=== PATIENT | female | born 1995 | race Hispanic/Latino ===

== ENCOUNTER 2023-07-28 22:49 | Emergency (ER) | payer OTHER ==
--- OUTSIDE RECORDS SUMMARY | 2023-07-28 22:54 | XMS REPORT | Continuity of Care Document ---
:1995 Author Organization [facility] t Address [address] [place] [address] Care Team Providers Name Role Phone Pcp, Patient Does Not Have A Primary Care Physician [id number] IRENE AMAYA Attending Clinician Unavailable IRENE AMAYA Attending Clinician Unavailable LALITHA MONTOYA Attending Clinician Unavailable Ultrasound, Jay-Mfaubree Attending Clinician Unavailable Lalitha Montoya MD Attending Clinician Lab, Jay - Willy Attending Clinician Unavailable Nancie Green MD Attending Clinician NANCIE GREEN Attending Clinician Unavailable NANCIE GREEN Attending Clinician Unavailable Sadi Campos Attending Clinician Unavailable Doctor Unassigned, [place] Attending Clinician Unavailable Primitivo Sandoval NP Attending Clinician Fellow, Woody Linder Attending Clinician Unavailable Nurse, Prema [facility] Attending Clinician Unavailable May Smith Attending Clinician Unavailable Physician, No Primary or Family Admitting Clinician Unavaila ble Payers Payer Name Policy Type Policy Number Effective Date Expiration Date Jack kline [facility] [id number] 2023 00:00:00 Problems Condition Condition Condition Status Onset Resolution Last Treating Co mments Source Name Details Category Date Date Treatment Clinician Date Disease Active Univers growth growth 9-21 [place] restrictio [place] Medical antepartum antepartum Br anch History of History of Disease Active U nivers pulmonary pulmonary 05-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 embolus 00:00: [place] during during 00 Medical Bran ch Previous Previous Disease Active Unive rs 05-23 ity of section section 00:00: [place] complicati complicati 00 Me dical ng ng Branch Supervisio Supervisio Disease Active U nivers n of high n of high 05-23 ity of risk risk 00:00: [place] 00 Medi karlene in second in second Bran ch trimester trimester Allergies, Adverse Reactions, Alerts Allergy Allergy Status Severity Reaction(s) Onset Inactive Treating Comm ents Source Name Type Date Date Clinician No Known DA Active U [facility] All[facility]ie 12-30 [facility] NO KNOWN Drug Active Univers ALLERGIE Class ity of S [facility] [place] [facility] Social History Social Habit Start Date Stop Date Quantity Comments Source ASSERTION 2023-02-20 [facility] 00:00:00 [facility] [place] [facility] Gender identity [facility]it y [facility] 2023-07-19 2023-07-19 Univers ity of function 00:00:00 00:00:00 [facility] [place] [facility] Alcohol intake 2023-07-05 2023-07-05 Ex-drinker [facility] 00:00:00 00:00:00 (finding) [facility] [place] [facility] Tobacco use and 2023 2023 Smokeless Universit y of exposure 00:00:00 00:00:00 tobacco non-user [facility] Sex Assigned At [birth year] Universit y of 00:00:00 00:00:00 [facility] [place] [facility] Smoking Status Start Date Stop Date Source Tobacco smoking [facility] Medications Ordered Filled Start Stop Current Ordering Indication Dosage Frequency Signature Comments Components Source Medication Medication Date Date Medication? Clinician (SIG) Name Name amoxicillin 2022-09 Yes [id number] 500mg Take 1 Univers -pot 0-02 tablet by ity of clavulanate [place] 500 mg 00 the Medical (AUGMENTIN) morning Branc h 500-125 mg and 1 tablet tablet at noon and 1 tablet in the evening. amoxicillin 2022-09 Yes [id number] 500mg Take 1 Univers -pot 0-02 tablet by ity of clavulanate 00:[place]: [place] mg 00 the Medical (AUGMENTIN) morning Branc h 500-125 mg and 1 tablet tablet at noon and 1 tablet in the evening. amoxicillin 2022-09 Yes [id number] 500mg Take 1 Univers -pot 0-02 tablet by ity of clavulanate 00:00: [place] 500 mg 00 the Medical (AUGMENTIN) morning Branc h 500-125 mg and 1 tablet tablet at noon and 1 tablet in the evening. amoxicillin 2022-09 Yes [id number] 500mg Take 1 Univers -pot 0-02 tablet by ity of clavulanate 00:00: [place] in [place] 500 mg 00 the Medical (AUGMENTIN) morning Branc h 500-125 mg and 1 tablet tablet at noon and 1 tablet in the evening. amoxicillin 2022-09 Yes [id number] 500mg Take 1 Univers -pot 0-02 tablet by ity of clavulanate 00:00: [place] 500 mg 00 the Medical (AUGMENTIN) morning Branc h 500-125 mg and 1 tablet tablet at noon and 1 tablet in the evening. amoxicillin 2022-09 Yes [id number] 500mg Take 1 Univers -pot 0-02 tablet by ity of clavulanate 00:00: [place] 500 mg 00 the Medical (AUGMENTIN) morning Branc h 500-125 mg and 1 tablet tablet at noon and 1 tablet in the evening. amoxicillin 2022-09 Yes [id number] 500mg Take 1 Univers -pot 0-02 tablet by ity of clavulanate 00:00: [place] 500 mg 00 the Medical (AUGMENTIN) morning Branc h 500-125 mg and 1 tablet tablet at noon and 1 tablet in the evening. insulin NPH Yes [id number] 8U inject 8 Univers (NOVOLIN N 9-08 Units ity of NPH U-100 00:00: under the [place] as INSULIN) 00 skin every Medic al 100 unit/mL morning Branc h injection and evening. insulin Yes [id number] 2U inject 2 U nivers regular 9-08 Units ity of human 00:00: under the [place] (NOVOLIN R 00 skin 2 Medical REGULAR (two) Branch U100 times INSULIN) daily 100 unit/mL before injection breakfast and dinner. Insulin 0 Yes Use as Univers Syringes, 06-07 directed ity of Disposable, 00:00: [place] 1 mL Syrg 00 Medical Branch insulin NPH Yes [id number] 8U inject 8 Univers (NOVOLIN N 9-08 Units ity of NPH U-100 00:00: under the [place] INSULIN) 00 skin every Medic al 100 unit/mL morning Branc h injection and evening. insulin 0 Yes [id number] 2U inject 2 U nivers regular 9-08 Units ity of human 00:00: under the [place] (NOVOLIN R 00 skin 2 Medical REGULAR (two) Branch U100 times INSULIN) daily 100 unit/mL before injection breakfast and dinner. Insulin Yes Use as Univers Syringes, 06-07 directed ity of Disposable, 00:00: [place] 1 mL Syrg 00 Medical Branch insulin NPH Yes [id number] 8U inject 8 Univers (NOVOLIN N 9-08 Units ity of NPH U-100 00:00: under the [place] INSULIN) 00 skin every Medic al 100 unit/mL morning Branc h injection and evening. insulin Yes [id number] 2U inject 2 U nivers regular 9-08 Units ity of human 00:00: under the [place] (NOVOLIN R 00 skin 2 Medical REGULAR (two) Branch U100 times INSULIN) daily 100 unit/mL before injection breakfast and dinner. Insulin Yes Use as Univers Syringes, 06-07 directed ity of Disposable, 00:00: [place] 1 mL Syrg 00 Medical Branch insulin NPH 0 Yes [id number] 8U inject 8 Univers (NOVOLIN N 9-08 Units ity of NPH U-100 00:00: under the [place] INSULIN) 00 skin every Medic al 100 unit/mL morning Branc h injection and evening. insulin 0 Yes [id number] 2U inject 2 U nivers regular 9-08 Units ity of human 00:00: under the [place] (NOVOLIN R 00 skin 2 Medical REGULAR (two) Branch U100 times INSULIN) daily 100 unit/mL before injection breakfast and dinner. Insulin 2022-0 Yes Use as Univers Syringes, 06-07 directed ity of Disposable, 00:00: [place] 1 mL Syrg 00 Medical Branch insulin NPH 2022-0 Yes [id number] 8U inject 8 Univers (NOVOLIN N 9-08 Units ity of NPH U-100 00:00: under the [place] INSULIN) 00 skin every Medic al 100 unit/mL morning Branc h injection and evening. insulin 2022-0 Yes [id number] 2U inject 2 U nivers regular 9-08 Units ity of human 00:00: under the [place] (NOVOLIN R 00 skin 2 Medical REGULAR (two) Branch U100 times INSULIN) daily 100 unit/mL before injection breakfast and dinner. Insulin 0 Yes Use as Univers Syringes, 06-07 directed ity of Disposable, 00:00: [place] 1 mL Syrg 00 Medical Branch insulin NPH 2022-0 Yes [id number] 8U inject 8 Univers (NOVOLIN N 9-08 Units ity of NPH U-100 00:00: under the [place] INSULIN) 00 skin every Medic al 100 unit/mL morning Branc h injection and evening. insulin 2022-0 Yes [id number] 2U inject 2 U nivers regular 9-08 Units ity of human 00:00: under the [place] (NOVOLIN R 00 skin 2 Medical REGULAR (two) Branch U100 times INSULIN) daily 100 unit/mL before injection breakfast and dinner. Insulin 2022-0 Yes Use as Univers Syringes, 06-07 directed ity of Disposable, 00:00: [place] 1 mL Syrg 00 Medical Branch insulin NPH 2022-0 Yes [id number] 8U inject 8 Univers (NOVOLIN N 9-08 Units ity of NPH U-100 00:00: under the [place] INSULIN) 00 skin every Medic al 100 unit/mL morning Branc h injection and evening. insulin 2022-0 Yes [id number] 2U inject 2 U nivers regular 9-08 Units ity of human 00:00: under the [place] (NOVOLIN R 00 skin 2 Medical REGULAR (two) Branch U100 times INSULIN) daily 100 unit/mL before injection breakfast and dinner. Insulin 2022-0 Yes Use as Univers Syringes, 06-07 directed ity of Disposable, 00:00: [place] 1 mL Syrg 00 Medical Branch insulin NPH 0 Yes [id number] 8U inject 8 Univers (NOVOLIN N 9-08 Units ity of NPH U-100 00:00: under the [place] INSULIN) 00 skin every Medic al 100 unit/mL morning Branc h injection and evening. insulin Yes [id number] 2U inject 2 U nivers regular 9-08 Units ity of human 00:00: under the [place] (NOVOLIN R 00 skin 2 Medical REGULAR (two) Branch U100 times INSULIN) daily 100 unit/mL before injection breakfast and dinner. Insulin Yes Use as Univers Syringes, 06-07 directed ity of Disposable, 00:00: [place] 1 mL Syrg 00 Medical Branch insulin NPH 0 Yes [id number] 8U inject 8 Univers (NOVOLIN N 9-08 Units ity of NPH U-100 00:00: under the [place] INSULIN) 00 skin every Medic al 100 unit/mL morning Branc h injection and evening. insulin Yes [id number] 2U inject 2 U nivers regular 9-08 Units ity of human 00:00: under the [place] (NOVOLIN R 00 skin 2 Medical REGULAR (two) Branch U100 times INSULIN) daily 100 unit/mL before injection breakfast and dinner. Insulin Yes Use as Univers Syringes, 06-07 directed ity of Disposable, 00:00: [place] 1 mL Syrg 00 Medical Branch insulin NPH 2022-0 Yes [id number] 8U inject 8 Univers (NOVOLIN N 9-08 Units ity of NPH U-100 00:00: under the [place] as INSULIN) 00 skin every Medic al 100 unit/mL morning Branc h injection and evening. insulin Yes [id number] 2U inject 2 U nivers regular 9-08 Units ity of human 00:00: under the [place] (NOVOLIN R 00 skin 2 Medical REGULAR (two) Branch U100 times INSULIN) daily 100 unit/mL before injection breakfast and dinner. Insulin Yes Use as Univers Syringes, 06-07 directed ity of Disposable, 00:00: [place] 1 mL Syrg 00 Medical Branch insulin NPH 2022- Yes [id number] 8U inject 8 Univers (NOVOLIN N 9-08 Units ity of NPH U-100 00:00: under the [place] as INSULIN) 00 skin every Medic al 100 unit/mL morning Branc h injection and evening. insulin 0 Yes [id number] 2U inject 2 U nivers regular 9-08 Units ity of human 00:00: under the [place] (NOVOLIN R 00 skin 2 Medical REGULAR (two) Branch U100 times INSULIN) daily 100 unit/mL before injection breakfast and dinner. Insulin 0 Yes Use as Univers Syringes, 06-07 directed ity of Disposable, 00:00: [place] 1 mL Syrg 00 Medical Branch insulin NPH 2022-0 Yes [id number] 8U inject 8 Univers (NOVOLIN N 9-08 Units ity of NPH U-100 00:00: under the [place] as INSULIN) 00 skin every Medic al 100 unit/mL morning Branc h injection and evening. insulin 0 Yes [id number] 2U inject 2 U nivers regular 9-08 Units ity of human 00:00: under the [place] (NOVOLIN R 00 skin 2 Medical REGULAR (two) Branch U100 times INSULIN) daily 100 unit/mL before injection breakfast and dinner. Insulin Yes Use as Univers Syringes, 06-07 directed ity of Disposable, 00:00: [place] 1 mL Syrg 00 Medical Branch insulin NPH 2022-0 Yes [id number] 8U inject 8 Univers (NOVOLIN N 9-08 Units ity of NPH U-100 00:00: under the [place] as INSULIN) 00 skin every Medic al 100 unit/mL morning Branc h injection and evening. insulin 2022-0 Yes [id number] 2U inject 2 U nivers regular 9-08 Units ity of human 00:00: under the [place] (NOVOLIN R 00 skin 2 Medical REGULAR (two) Branch U100 times INSULIN) daily 100 unit/mL before injection breakfast and dinner. Insulin Yes Use as Univers Syringes, 06-07 directed ity of Disposable, 00:00: [place] 1 mL Syrg 00 Medical Branch insulin NPH 2022-0 Yes [id number] 8U inject 8 Univers (NOVOLIN N 9-08 Units ity of NPH U-100 00:00: under the [place] as INSULIN) 00 skin every Medic al 100 unit/mL morning Branc h injection and evening. insulin 2022-0 Yes [id number] 2U inject 2 U nivers regular 9-08 Units ity of human 00:00: under the [place] (NOVOLIN R 00 skin 2 Medical REGULAR (two) Branch U100 times INSULIN) daily 100 unit/mL before injection breakfast and dinner. Insulin 0 Yes Use as Univers Syringes, 06-07 directed ity of Disposable, 00:00: [place] 1 mL Syrg 00 Medical Branch insulin NPH 0 Yes [id number] 8U inject 8 Univers (NOVOLIN N 9-08 Units ity of NPH U-100 00:00: under the [place] as INSULIN) 00 skin every Medic al 100 unit/mL morning Branc h injection and evening. insulin 0 Yes [id number] 2U inject 2 U nivers regular 9-08 Units ity of human 00:00: under the [place] (NOVOLIN R 00 skin 2 Medical REGULAR (two) Branch U100 times INSULIN) daily 100 unit/mL before injection breakfast and dinner. Insulin Yes Use as Univers Syringes, 06-07 directed ity of Disposable, 00:00: [place] 1 mL Syrg 00 Medical Branch insulin NPH 0 Yes [id number] 8U inject 8 Univers (NOVOLIN N 9-08 Units ity of NPH U-100 00:00: under the [place] as INSULIN) 00 skin every Medic al 100 unit/mL morning Branc h injection and evening. insulin 0 Yes [id number] 2U inject 2 U nivers regular 9-08 Units ity of human 00:00: under the [place] (NOVOLIN R 00 skin 2 Medical REGULAR (two) Branch U100 times INSULIN) daily 100 unit/mL before injection breakfast and dinner. Insulin 0 Yes Use as Univers Syringes, 06-07 directed ity of Disposable, 00:00: [place] 1 mL Syrg 00 Medical Branch insulin NPH 2022-0 Yes [id number] 8U inject 8 Univers (NOVOLIN N 9-08 Units ity of NPH U-100 00:00: under the [place] as INSULIN) 00 skin every Medic al 100 unit/mL morning Branc h injection and evening. insulin 2022-0 Yes [id number] 2U inject 2 U nivers regular 9-08 Units ity of human 00:00: under the [place] (NOVOLIN R 00 skin 2 Medical REGULAR (two) Branch U100 times INSULIN) daily 100 unit/mL before injection breakfast and dinner. Insulin 2022-0 Yes Use as Univers Syringes, 06-07 directed ity of Disposable, 00:00: [place] 1 mL Syrg 00 Medical Branch insulin NPH 2022-0 Yes [id number] 8U inject 8 Univers (NOVOLIN N 9-08 Units ity of NPH U-100 00:00: under the [place] as INSULIN) 00 skin every Medic al 100 unit/mL morning Branc h injection and evening. insulin 2022-0 Yes [id number] 2U inject 2 U nivers regular 9-08 Units ity of human 00:00: under the [place] (NOVOLIN R 00 skin 2 Medical REGULAR (two) Branch U100 times INSULIN) daily 100 unit/mL before injection breakfast and dinner. Insulin 0 Yes Use as Univers Syringes, 06-07 directed ity of Disposable, 00:00: [place] 1 mL Syrg 00 Medical Branch insulin NPH 2022-0 Yes [id number] 8U inject 8 Univers (NOVOLIN N 9-08 Units ity of NPH U-100 00:00: under the [place] as INSULIN) 00 skin every Medic al 100 unit/mL morning Branc h injection and evening. insulin 2022-0 Yes [id number] 2U inject 2 U nivers regular 9-08 Units ity of human 00:00: under the [place] (NOVOLIN R 00 skin 2 Medical REGULAR (two) Branch U100 times INSULIN) daily 100 unit/mL before injection breakfast and dinner. Insulin 0 Yes Use as Univers Syringes, 06-07 directed ity of Disposable, 00:00: [place] 1 mL Syrg 00 Medical Branch insulin NPH 2022-0 Yes [id number] 8U inject 8 Univers (NOVOLIN N 9-08 Units ity of NPH U-100 00:00: under the [place] as INSULIN) 00 skin every Medic al 100 unit/mL morning Branc h injection and evening. insulin 2022-0 Yes [id number] 2U inject 2 U nivers regular 9-08 Units ity of human 00:00: under the [place] (NOVOLIN R 00 skin 2 Medical REGULAR (two) Branch U100 times INSULIN) daily 100 unit/mL before injection breakfast and dinner. Insulin 0 Yes Use as Univers Syringes, 06-07 directed ity of Disposable, 00:00: [place] 1 mL Syrg 00 Medical Branch amoxicillin 2022- Yes [id number] 500mg Take 1 Univers 500 mg 06-07 capsule by ity of capsule 00:00: 04:59 mouth 4 [place] 00 :00 (four) Medical times Branch daily for 7 days. amoxicillin 2022- Yes [id number] 500mg Take 1 Univers 500 mg 06-07 capsule by ity of capsule 00:00: 04:59 mouth 4 [place] 00 :00 (four) Medical times Branch daily for 7 days. amoxicillin 2022- Yes [id number] 500mg Take 1 Univers 500 mg 06-07 capsule by ity of capsule 00:00: 04:59 mouth 4 [place] 00 :00 (four) Medical times Branch daily for 7 days. amoxicillin 2022-2022- Yes [id number] 500mg Take 1 Univers 500 mg 06-07 capsule by ity of capsule 00:00: 04:59 mouth 4 [place] 00 :00 (four) Medical times Branch daily for 7 days. amoxicillin 2022- Yes [id number] 500mg Take 1 Univers 500 mg 06-07 capsule by ity of capsule 00:00: 04:59 mouth 4 [place] 00 :00 (four) Medical times Branch daily for 7 days. amoxicillin 2022- Yes [id number] 500mg Take 1 Univers 500 mg 06-07 capsule by ity of capsule 00:00: 04:59 mouth 4 [place] 00 :00 (four) Medical times Branch daily for 7 days. amoxicillin 2022- Yes [id number] 500mg Take 1 Univers 500 mg 06-07 capsule by ity of capsule 00:00: 04:59 mouth 4 [place] 00 :00 (four) Medical times Branch daily for 7 days. enoxaparin 2022- Yes [id number] 40mg inject 0.4 Univers (LOVENOX) 9-07 mL under ity of 40 mg/0.4 00:00: [place] mL 00 in the Medical injection morning. Branch enoxaparin 2022- Yes [id number] 40mg inject 0.4 Univers (LOVENOX) 9-07 mL under ity of 40 mg/0.4 00:00: [place] mL 00 in the Medical injection morning. Branch enoxaparin 2022-0 Yes [id number] 40mg inject 0.4 Univers (LOVENOX) 9-07 mL under ity of 40 mg/0.4 00:00: [place] mL 00 in the Medical injection morning. Branch enoxaparin 2022-0 Yes [id number] 40mg inject 0.4 Univers (LOVENOX) 9-07 mL under ity of 40 mg/0.4 00:00: [place] mL 00 in the Medical injection morning. Branch enoxaparin 2022-0 Yes [id number] 40mg inject 0.4 Univers (LOVENOX) 9-07 mL under ity of 40 mg/0.4 00:00: [place] mL 00 in the Medical injection morning. Branch enoxaparin 2022-0 Yes [id number] 40mg inject 0.4 Univers (LOVENOX) 9-07 mL under ity of 40 mg/0.4 00:00: [place] mL 00 in the Medical injection morning. Branch enoxaparin 2022-0 Yes [id number] 40mg inject 0.4 Univers (LOVENOX) 9-07 mL under ity of 40 mg/0.4 00:00: [place] mL 00 in the Medical injection morning. Branch enoxaparin 2022-0 Yes [id number] 40mg inject 0.4 Univers (LOVENOX) 9-07 mL under ity of 40 mg/0.4 00:00: [place] mL 00 in the Medical injection morning. Branch enoxaparin 2022-0 Yes [id number] 40mg inject 0.4 Univers (LOVENOX) 9-07 mL under ity of 40 mg/0.4 00:00: [place] mL 00 in the Medical injection morning. Branch enoxaparin 3-0 Yes [id number] 40mg inject 0.4 Univers (LOVENOX) 9-07 mL under ity of 40 mg/0.4 00:00: [place] mL 00 in the Medical injection morning. Branch enoxaparin 3-0 Yes [id number] 40mg inject 0.4 Univers (LOVENOX) 9-07 mL under ity of 40 mg/0.4 00:00: [place] mL 00 in the Medical injection morning. Branch enoxaparin 2022-0 Yes [id number] 40mg inject 0.4 Univers (LOVENOX) 9-07 mL under ity of 40 mg/0.4 00:00: [place] mL 00 in the Medical injection morning. Branch enoxaparin 2022-0 Yes [id number] 40mg inject 0.4 Univers (LOVENOX) 9-07 mL under ity of 40 mg/0.4 00:00: [place] mL 00 in the Medical injection morning. Branch enoxaparin 2022-0 Yes [id number] 40mg inject 0.4 Univers (LOVENOX) 9-07 mL under ity of 40 mg/0.4 00:00: [place] mL 00 in the Medical injection morning. Branch enoxaparin 2022-0 Yes [id number] 40mg inject 0.4 Univers (LOVENOX) 9-07 mL under ity of 40 mg/0.4 00:00: [place] mL 00 in the Medical injection morning. Branch enoxaparin 2022-0 Yes [id number] 40mg inject 0.4 Univers (LOVENOX) 9-07 mL under ity of 40 mg/0.4 00:00: [place] mL 00 in the Medical injection morning. Branch enoxaparin 2022-0 Yes [id number] 40mg inject 0.4 Univers (LOVENOX) 9-07 mL under ity of 40 mg/0.4 00:00: [place] mL 00 in the Medical injection morning. Branch enoxaparin 2022-0 Yes [id number] 40mg inject 0.4 Univers (LOVENOX) 9-07 mL under ity of 40 mg/0.4 00:00: [place] mL 00 in the Medical injection morning. Branch enoxaparin 2022-0 Yes [id number] 40mg inject 0.4 Univers (LOVENOX) 9-07 mL under ity of 40 mg/0.4 00:00: [place] mL 00 in the Medical injection morning. Branch enoxaparin 3-0 Yes [id number] 40mg inject 0.4 Univers (LOVENOX) 9-07 mL under ity of 40 mg/0.4 00:00: [place] mL 00 in the Medical injection morning. Branch enoxaparin Yes [id number] 40mg inject 0.4 Univers (LOVENOX) 9-07 mL under ity of 40 mg/0.4 00:00: [place] mL 00 in the Medical injection morning. Branch enoxaparin Yes [id number] 40mg inject 0.4 Univers (LOVENOX) 9-07 mL under ity of 40 mg/0.4 00:00: [place] mL 00 in the Medical injection morning. Branch amoxicillin 2022- Yes 500mg Take 1 Un [place] 500 mg 05-29 tablet by ity of tablet 00:00: 04:59 mouth 4 [place] 00 :00 (four) Medical times Branch daily for 7 days. amoxicillin 2022- Yes 500mg Take 1 Un [place] 500 mg 05-29 tablet by ity of tablet 00:00: 04:59 mouth 4 [place] 00 :00 ([facility]) Medical times Branch daily for 7 days. amoxicillin 2022- Yes 500mg Take 1 Un [place] 500 mg 05-29 tablet by ity of tablet 00:00: 04:59 mouth 4 [place] 00 :00 ([facility]) Medical times Branch daily for 7 days. Alcohol Yes [id number] Check Univ ers Swabs PadM 05-27 blood ity of 00:00: glucose 4 [place] 00 times a Medical day Branch blood sugar Yes [id number] Check Univers diagnostic 05-27 blood ity of (BLOOD 00:00: sugar 4 [place] GLUCOSE 00 times a Medical TEST) strip day Branch Blood-Gluco Yes [id number] Check bood Univers se Meter 8 glucose 4 ity of Kit 00:00: times a [place] 00 day Medical Branch Lancets Yes [id number] Check Univ ers Misc 8 blood ity of 00:00: glucose 4 [place] 00 times a Medical day Branch ONETOUCH Yes Univers DELICA PLUS 8 ity of LANCET 33 00:00: [place] gauge Misc 00 Medical Branch Alcohol 2023-0 Yes [id number] Check Univ ers Swabs PadM 8-28 blood ity of 00:00: glucose 4 [place] 00 times a Medical day Branch blood sugar 2022-0 Yes [id number] Check Univers diagnostic 8-28 blood ity of (BLOOD 00:00: sugar 4 [place] GLUCOSE 00 times a Medical TEST) strip day Branch Blood-Gluco 2022-0 Yes [id number] Check bood Univers se Meter 8-28 glucose 4 ity of Kit 00:00: times a 00 day Medical Branch Lancets 2022-0 Yes [id number] Check Univ ers Misc 8-28 blood ity of 00:00: glucose 4 [place] 00 times a Medical day Branch ONETOUCH 0 Yes Univers DELICA PLUS 8-28 ity of LANCET 33 00:00: [facility] Medical Branch Alcohol 2022-0 Yes [id number] Check Univ ers Swabs PadM 8-28 blood ity of 00:00: glucose 4 00 times a Medical day Branch blood sugar 2022-0 Yes [id number] Check Univers diagnostic 8-28 blood ity of (BLOOD 00:00: sugar 4 [place] GLUCOSE 00 times a Medical TEST) strip day Branch Blood-Gluco 2022-0 Yes [id number] Check bood Univers se Meter 8-28 glucose 4 ity of Kit 00:00: times a day Medical Branch Lancets 2022-0 Yes [id number] Check Univ ers Misc 8-28 blood ity of 00:00: glucose 4 [place] 00 times a Medical day Branch ONETOUCH 2022-0 Yes Univers DELICA PLUS 8-28 ity of LANCET 33 00:00: gauge [facility] Medical Branch Alcohol 2022-0 Yes [id number] Check Univ ers Swabs PadM 8-28 blood ity of 00:00: glucose 4 [place] 00 times a Medical day Branch blood sugar 2022-0 Yes [id number] Check Univers diagnostic 8-28 blood ity of (BLOOD 00:00: sugar 4 [place] GLUCOSE 00 times a Medical TEST) strip day Branch Blood-Gluco 2022-0 Yes [id number] Check bood Univers se Meter 8-28 glucose 4 ity of Kit 00:00: times a day Medical Branch Lancets 2022-0 Yes [id number] Check Univ ers Misc 8-28 blood ity of 00:00: glucose 4 [place] 00 times a Medical day Branch ONETOUCH 2022-0 Yes Univers DELICA PLUS 8-28 ity of LANCET 33 00:00: [place] [facility] Alcohol 2022-0 Yes [id number] Check Univ ers Swabs PadM 8-28 blood ity of 00:00: glucose 4 [place] 00 times a Medical day Branch blood sugar 2022-0 Yes [id number] Check Univers diagnostic 8-28 blood ity of (BLOOD 00:00: sugar 4 [place] GLUCOSE 00 times a Medical TEST) strip day Branch Blood-Gluco 0 Yes [id number] Check bood Univers se Meter 8-28 glucose 4 ity of Kit 00:00: times a 00 day Medical Branch Lancets 2022-0 Yes [id number] Check Univ ers Misc 8-28 blood ity of 00:00: glucose 4 [place] 00 times a Medical day Branch ONETOUCH 2022-0 Yes Univers DELICA PLUS 8-28 ity of LANCET 33 00:00: [facility] Alcohol 2022-0 Yes [id number] Check Univ ers Swabs PadM 8-28 blood ity of 00:00: glucose 4 [place] 00 times a Medical day Branch blood sugar 2022-0 Yes [id number] Check Univers diagnostic 8-28 blood ity of (BLOOD 00:00: sugar 4 [place] GLUCOSE 00 times a Medical TEST) strip day Branch Blood-Gluco 2022-0 Yes [id number] Check bood Univers se Meter 8-28 glucose 4 ity of Kit 00:00: times a 00 day Medical Branch Lancets 2022-0 Yes [id number] Check Univ ers Misc 8-28 blood ity of 00:00: glucose 4 [place] 00 times a Medical day Branch ONETOUCH 2022-0 Yes Univers DELICA PLUS 8-28 ity of LANCET 33 00:00: [place] gauge [facility] Medical Branch Alcohol 2022-0 Yes [id number] Check Univ ers Swabs PadM 8-28 blood ity of 00:00: glucose 4 [place] 00 times a Medical day Branch blood sugar 2022-0 Yes [id number] Check Univers diagnostic 8-28 blood ity of (BLOOD 00:00: sugar 4 [place] GLUCOSE 00 times a Medical TEST) strip day Branch Blood-Gluco 2022-0 Yes [id number] Check bood Univers se Meter 8-28 glucose 4 ity of Kit 00:00: times a 00 day Medical Branch Lancets 2022-0 Yes [id number] Check Univ ers Misc 8-28 blood ity of 00:00: glucose 4 [place] 00 times a Medical day Branch ONETOUCH 2022-0 Yes Univers DELICA PLUS 8-28 ity of LANCET 33 00:00: [facility] Medical Branch Alcohol 2022-0 Yes [id number] Check Univ ers Swabs PadM 8-28 blood ity of 00:00: glucose 4 [place] 00 times a Medical day Branch blood sugar 2022-0 Yes [id number] Check Univers diagnostic 8-28 blood ity of (BLOOD 00:00: sugar 4 [place] GLUCOSE 00 times a Medical TEST) strip day Branch Blood-Gluco 0 Yes [id number] Check bood Univers se Meter 8-28 glucose 4 ity of Kit 00:00: times a day Medical Branch Lancets 2022-0 Yes [id number] Check Univ ers Misc 8-28 blood ity of 00:00: glucose 4 00 times a Medical day Branch ONETOUCH 2022-0 Yes Univers DELICA PLUS 8-28 ity of LANCET 33 00:00: [facility] Medical Branch Alcohol 2022-0 Yes [id number] Check Univ ers Swabs PadM 8-28 blood ity of 00:00: glucose 4 times a Medical day Branch blood sugar 2022-0 Yes [id number] Check Univers diagnostic 8-28 blood ity of (BLOOD 00:00: sugar 4 [place] GLUCOSE 00 times a Medical TEST) strip day Branch Blood-Gluco 2022-0 Yes [id number] Check bood Univers se Meter 8-28 glucose 4 ity of Kit 00:00: times a day Medical Branch Lancets 2022-0 Yes [id number] Check Univ ers Misc 8-28 blood ity of 00:00: glucose 4 00 times a Medical day Branch ONETOUCH 2022-0 Yes Univers DELICA PLUS 8-28 ity of LANCET 33 00:00: [place] gauge [facility] Medical Branch Alcohol 2022-0 Yes [id number] Check Univ ers Swabs PadM 8-28 blood ity of 00:00: glucose 4 [place] 00 times a Medical day Branch blood sugar 2023-0 Yes [id number] Check Univers diagnostic 8-28 blood ity of (BLOOD 00:00: sugar 4 [place] GLUCOSE 00 times a Medical TEST) strip day Branch Blood-Gluco 2022-0 Yes [id number] Check bood Univers se Meter 8-28 glucose 4 ity of Kit 00:00: times a day Medical Branch Lancets 2022-0 Yes [id number] Check Univ ers Misc 8-28 blood ity of 00:00: glucose 4 [place] 00 times a Medical day Branch ONETOUCH 2022-0 Yes Univers DELICA PLUS 8-28 ity of LANCET 33 00:00: [place] gauge Mis 00 Medical Branch Alcohol 2022-0 Yes [id number] Check Univ ers Swabs PadM 8-28 blood ity of 00:00: glucose 4 [place] times a Medical day Branch blood sugar 2022-0 Yes [id number] Check Univers diagnostic 8-28 blood ity of (BLOOD 00:00: sugar 4 [place] GLUCOSE 00 times a Medical TEST) strip day Branch Blood-Gluco 2022-0 Yes [id number] Check bood Univers se Meter 8-28 glucose 4 ity of Kit 00:00: times a day Medical Branch Lancets 2022-0 Yes [id number] Check Univ ers Misc 8-28 blood ity of 00:00: glucose 4 00 times a Medical day Branch ONETOUCH 2022-0 Yes Univers DELICA PLUS 8-28 ity of LANCET 33 00:00: [place] gauge [facility] 00 Medical Branch Alcohol 2022-0 Yes [id number] Check Univ ers Swabs PadM 8-28 blood ity of 00:00: glucose 4 [place] 00 times a Medical day Branch blood sugar 2022-0 Yes [id number] Check Univers diagnostic 8-28 blood ity of (BLOOD 00:00: sugar 4 [place] GLUCOSE 00 times a Medical TEST) strip day Branch Blood-Gluco 2022-0 Yes [id number] Check bood Univers se Meter 8-28 glucose 4 ity of Kit 00:00: times a 00 day Medical Branch Lancets 2022-0 Yes [id number] Check Univ ers Misc 8-28 blood ity of 00:00: glucose 4 [place] 00 times a Medical day Branch ONETOUCH 2022-0 Yes Univers DELICA PLUS 8-28 ity of LANCET 33 00:00: [place] gauge Misc Medical Branch Alcohol 2023-0 Yes [id number] Check Univ ers Swabs PadM 8-28 blood ity of 00:00: glucose 4 [place] 00 times a Medical day Branch blood sugar 2022-0 Yes [id number] Check Univers diagnostic 8-28 blood ity of (BLOOD 00:00: sugar 4 [place] GLUCOSE 00 times a Medical TEST) strip day Branch Blood-Gluco 2022-0 Yes [id number] Check bood Univers se Meter 8-28 glucose 4 ity of Kit 00:00: times a day Medical Branch Lancets 2022-0 Yes [id number] Check Univ ers Misc 8-28 blood ity of 00:00: glucose 4 times a Medical day Branch ONETOUCH 2022-0 Yes Univers DELICA PLUS 8-28 ity of LANCET 33 00:00: [facility] Medical Branch Alcohol 2022-0 Yes [id number] Check Univ ers Swabs PadM 8-28 blood ity of 00:00: glucose 4 times a Medical day Branch blood sugar 2022-0 Yes [id number] Check Univers diagnostic 8-28 blood ity of (BLOOD 00:00: sugar 4 [place] GLUCOSE 00 times a Medical TEST) strip day Branch Blood-Gluco 2022-0 Yes [id number] Check bood Univers se Meter 8-28 glucose 4 ity of Kit 00:00: times a day Medical Branch Lancets 2022-0 Yes [id number] Check Univ ers Misc 8-28 blood ity of 00:00: glucose 4 times a Medical day Branch ONETOUCH 2022-0 Yes Univers DELICA PLUS 8-28 ity of LANCET 33 00:00: [facility] Medical Branch Alcohol 202-0 Yes [id number] Check Univ ers Swabs PadM 8-28 blood ity of 00:00: glucose 4 00 times a Medical day Branch blood sugar 2022-0 Yes [id number] Check Univers diagnostic 8-28 blood ity of (BLOOD 00:00: sugar 4 [place] GLUCOSE 00 times a Medical TEST) strip day Branch Blood-Gluco 2022-0 Yes [id number] Check bood Univers se Meter 8-28 glucose 4 ity of Kit 00:00: times a day Medical Branch Lancets 2022-0 Yes [id number] Check Univ ers Misc 8-28 blood ity of 00:00: glucose 4 [place] 00 times a Medical day Branch ONETOUCH 2022-0 Yes Univers DELICA PLUS 8-28 ity of LANCET 33 00:00: [place] [facility] Alcohol 2022-0 Yes [id number] Check Univ ers Swabs PadM 8-28 blood ity of 00:00: glucose 4 [place] 00 times a Medical day Branch blood sugar 2022-0 Yes [id number] Check Univers diagnostic 8-28 blood ity of (BLOOD 00:00: sugar 4 [place] GLUCOSE 00 times a Medical TEST) strip day Branch Blood-Gluco 2022-0 Yes [id number] Check bood Univers se Meter 8-28 glucose 4 ity of Kit 00:00: times a [place] 00 day Medical Branch Lancets 2022-0 Yes [id number] Check Univ ers Misc 8-28 blood ity of 00:00: glucose 4 [place] 00 times a Medical day Branch ONETOUCH 2022-0 Yes Univers DELICA PLUS 8-28 ity of LANCET 33 00:00: [place] [facility] Alcohol 2022-0 Yes [id number] Check Univ ers Swabs PadM 8-28 blood ity of 00:00: glucose 4 [place] 00 times a Medical day Branch blood sugar 2022-0 Yes [id number] Check Univers diagnostic 8-28 blood ity of (BLOOD 00:00: sugar 4 [place] GLUCOSE 00 times a Medical TEST) strip day Branch Blood-Gluco 2022-0 Yes [id number] Check bood Univers se Meter 8-28 glucose 4 ity of Kit 00:00: times a 00 day Medical Branch Lancets 2022-0 Yes [id number] Check Univ ers Misc 8-28 blood ity of 00:00: glucose 4 [place] 00 times a Medical day Branch ONETOUCH 2022-0 Yes Univers DELICA PLUS 8-28 ity of LANCET 33 00:00: [place] [facility] Alcohol 2022-0 Yes [id number] Check Univ ers Swabs PadM 8-28 blood ity of 00:00: glucose 4 [place] 00 times a Medical day Branch blood sugar 3-0 Yes [id number] Check Univers diagnostic 8-28 blood ity of (BLOOD 00:00: sugar 4 [place] GLUCOSE 00 times a Medical TEST) strip day Branch Blood-Gluco 0 Yes [id number] Check bood Univers se Meter 8-28 glucose 4 ity of Kit 00:00: times a [place] 00 day Medical Branch Lancets 2022-0 Yes [id number] Check Univ ers Misc 8-28 blood ity of 00:00: glucose 4 [place] 00 times a Medical day Branch ONETOUCH 0 Yes Univers DELICA PLUS 8-28 ity of LANCET 33 00:00: [place] gauge [facility] Medical Branch Alcohol 2022-0 Yes [id number] Check Univ ers Swabs PadM 8-28 blood ity of 00:00: glucose 4 [place] 00 times a Medical day Branch blood sugar 2022-0 Yes [id number] Check Univers diagnostic 8-28 blood ity of (BLOOD 00:00: sugar 4 [place] GLUCOSE 00 times a Medical TEST) strip day Branch Blood-Gluco Yes [id number] Check bood Univers se Meter 8-28 glucose 4 ity of Kit 00:00: times a 00 day Medical Branch Lancets 2022-0 Yes [id number] Check Univ ers Misc 8-28 blood ity of 00:00: glucose 4 [place] 00 times a Medical day Branch ONETOUCH 0 Yes Univers DELICA PLUS 8-28 ity of LANCET 33 00:00: [place] gauge [facility] Medical Branch Alcohol 2022-0 Yes [id number] Check Univ ers Swabs PadM 8-28 blood ity of 00:00: glucose 4 [place] 00 times a Medical day Branch blood sugar 2022-0 Yes [id number] Check Univers diagnostic 8-28 blood ity of (BLOOD 00:00: sugar 4 [place] GLUCOSE 00 times a Medical TEST) strip day Branch Blood-Gluco 0 Yes [id number] Check bood Univers se Meter 8-28 glucose 4 ity of Kit 00:00: times a 00 day Medical Branch Lancets 2022-0 Yes [id number] Check Univ ers Misc 8-28 blood ity of 00:00: glucose 4 [place] 00 times a Medical day Branch ONETOUCH 2022-0 Yes Univers DELICA PLUS 8-28 ity of LANCET 33 00:00: [place] gauge Mis Medical Branch Alcohol 2022-0 Yes [id number] Check Univ ers Swabs PadM 8-28 blood ity of 00:00: glucose 4 [place] 00 times a Medical day Branch blood sugar 2022-0 Yes [id number] Check Univers diagnostic 8-28 blood ity of (BLOOD 00:00: sugar 4 [place] GLUCOSE 00 times a Medical TEST) strip day Branch Blood-Gluco 0 Yes [id number] Check bood Univers se Meter 8-28 glucose 4 ity of Kit 00:00: times a day Medical Branch Lancets 2022-0 Yes [id number] Check Univ ers Misc 8-28 blood ity of 00:00: glucose 4 00 times a Medical day Branch ONETOUCH 0 Yes Univers DELICA PLUS 8-28 ity of LANCET 33 00:00: gauge [facility] 00 Medical Branch Alcohol 2022-0 Yes [id number] Check Univ ers Swabs PadM 8-28 blood ity of 00:00: glucose 4 times a Medical day Branch blood sugar 0 Yes [id number] Check Univers diagnostic 8-28 blood ity of (BLOOD 00:00: sugar 4 [place] GLUCOSE 00 times a Medical TEST) strip day Branch Blood-Gluco 0 Yes [id number] Check bood Univers se Meter 8-28 glucose 4 ity of Kit 00:00: times a day Medical Branch Lancets 2022-0 Yes [id number] Check Univ ers Misc 8-28 blood ity of 00:00: glucose 4 times a Medical day Branch ONETOUCH 0 Yes Univers DELICA PLUS 8-28 ity of LANCET 33 00:00: gauge [facility] 00 Medical Branch Alcohol 2022-0 Yes [id number] Check Univ ers Swabs PadM 8-28 blood ity of 00:00: glucose 4 [place] 00 times a Medical day Branch blood sugar 2022-0 Yes [id number] Check Univers diagnostic 8-28 blood ity of (BLOOD 00:00: sugar 4 [place] GLUCOSE 00 times a Medical TEST) strip day Branch Blood-Gluco 2022-0 Yes [id number] Check bood Univers se Meter 8-28 glucose 4 ity of Kit 00:00: times a day Medical Branch Lancets 2022-0 Yes [id number] Check Univ ers Misc 8-28 blood ity of 00:00: glucose 4 00 times a Medical day Branch ONETOUCH 2022-0 Yes Univers DELICA PLUS 8-28 ity of LANCET 33 00:00: [place] gauge Mis 00 Medical Branch Alcohol 2023-0 Yes [id number] Check Univ ers Swabs PadM 8-28 blood ity of 00:00: glucose 4 [place] 00 times a Medical day Branch blood sugar 2022-0 Yes [id number] Check Univers diagnostic 8-28 blood ity of (BLOOD 00:00: sugar 4 [place] GLUCOSE 00 times a Medical TEST) strip day Branch Blood-Gluco 2022-0 Yes [id number] Check bood Univers se Meter 8-28 glucose 4 ity of Kit 00:00: times a 00 day Medical Branch Lancets 2022-0 Yes [id number] Check Univ ers Misc 8-28 blood ity of 00:00: glucose 4 [place] 00 times a Medical day Branch ONETOUCH 2022-0 Yes Univers DELICA PLUS 8-28 ity of LANCET 33 00:00: [place] gauge [facility] 00 Medical Branch Alcohol 2022-0 Yes [id number] Check Univ ers Swabs PadM 8-28 blood ity of 00:00: glucose 4 [place] 00 times a Medical day Branch blood sugar 2022-0 Yes [id number] Check Univers diagnostic 8-28 blood ity of (BLOOD 00:00: sugar 4 [place] GLUCOSE 00 times a Medical TEST) strip day Branch Blood-Gluco 2022-0 Yes [id number] Check bood Univers se Meter 8-28 glucose 4 ity of Kit 00:00: times a day Medical Branch Lancets 2022-0 Yes [id number] Check Univ ers Misc 8-28 blood ity of 00:00: glucose 4 [place] 00 times a Medical day Branch ONETOUCH 2022-0 Yes Univers DELICA PLUS 8-28 ity of LANCET 33 00:00: [place] gauge [facility] 00 Medical Branch Alcohol 2022-0 Yes [id number] Check Univ ers Swabs PadM 8-28 blood ity of 00:00: glucose 4 [place] 00 times a Medical day Branch blood sugar 2022-0 Yes [id number] Check Univers diagnostic 8-28 blood ity of (BLOOD 00:00: sugar 4 [place] GLUCOSE 00 times a Medical TEST) strip day Branch Blood-Gluco 2022-0 Yes [id number] Check bood Univers se Meter 8-28 glucose 4 ity of Kit 00:00: times a [place] 00 day Medical Branch Lancets 2023-0 Yes [id number] Check Univ ers Misc 8-28 blood ity of 00:00: glucose 4 [place] 00 times a Medical day Branch ONETOUCH 0 Yes Univers DELICA PLUS 8-28 ity of LANCET 33 00:00: [place] gauge [facility] 00 Medical Branch Alcohol 0 Yes [id number] Check Univ ers Swabs PadM 8-28 blood ity of 00:00: glucose 4 [place] 00 times a Medical day Branch blood sugar 0 Yes [id number] Check Univers diagnostic 8-28 blood ity of (BLOOD 00:00: sugar 4 [place] GLUCOSE 00 times a Medical TEST) strip day Branch Blood-Gluco Yes [id number] Check bood Univers se Meter 8-28 glucose 4 ity of Kit 00:00: times a 00 day Medical Branch Lancets Yes [id number] Check Univ ers Misc 8-28 blood ity of 00:00: glucose 4 [place] 00 times a Medical day Branch ONETOUCH Yes Univers DELICA PLUS 8-28 ity of LANCET 33 00:00: [place] gauge Mis 00 Medical Branch Alcohol 0 Yes [id number] Check Univ ers Swabs PadM 8-28 blood ity of 00:00: glucose 4 [place] 00 times a Medical day Branch blood sugar 0 Yes [id number] Check Univers diagnostic 8-28 blood ity of (BLOOD 00:00: sugar 4 [place] GLUCOSE 00 times a Medical TEST) strip day Branch Blood-Gluco Yes [id number] Check bood Univers se Meter 8-28 glucose 4 ity of Kit 00:00: times a 00 day Medical Branch Lancets 0 Yes [id number] Check Univ ers Misc 8-28 blood ity of 00:00: glucose 4 00 times a Medical day Branch Yes Take by Univer s vit 8-24 mouth. ity of no.124/iron 09:21: [place] /folic 19 Medical ( Branch VITAMIN ORAL) Yes Take by Univer s vit 8-24 mouth. ity of no.124/iron 09:21: [place] /folic 19 Medical ( Branch VITAMIN ORAL) Yes Take by Univer s vit 8-24 mouth. ity of no.124/iron 09:21: [place] /folic 19 Medical ( Branch VITAMIN ORAL) 0 Yes Take by Univer s vit 8-24 mouth. ity of no.124/iron 09:21: [place] /folic 19 Medical ( Branch VITAMIN ORAL) 0 Yes Take by Univer s vit 8-24 mouth. ity of no.124/iron 09:21: [place] /folic 19 Medical ( Branch VITAMIN ORAL) Yes Take by Univer s vit 8-24 mouth. ity of no.124/iron 09:21: [place] /folic 19 Medical ( Branch VITAMIN ORAL) Yes Take by Univer s vit 8-24 mouth. ity of no.124/iron 09:21: [place] /folic 19 Medical ( Branch VITAMIN ORAL) Yes Take by Univer s vit 8-24 mouth. ity of no.124/iron 09:21: [place] /folic 19 Medical ( Branch VITAMIN ORAL) Yes Take by Univer s vit 8-24 mouth. ity of no.124/iron 09:21: [place] /folic 19 Medical ( Branch VITAMIN ORAL) Yes Take by Univer s vit 8-24 mouth. ity of no.124/iron 09:21: [place] /folic 19 Medical ( Branch VITAMIN ORAL) Yes Take by Univer s vit 8-24 mouth. ity of no.124/iron 09:21: [place] /folic 19 Medical ( Branch VITAMIN ORAL) Yes Take by Univer s vit 8-24 mouth. ity of no.124/iron 09:21: [place] /folic 19 Medical ( Branch VITAMIN ORAL) Yes Take by Univer s vit 8-24 mouth. ity of no.124/iron 09:21: [place] /folic 19 Medical ( Branch VITAMIN ORAL) 0 Yes Take by Univer s vit 8-24 mouth. ity of no.124/iron 09:21: [place] /folic 19 Medical ( Branch VITAMIN ORAL) 0 Yes Take by Univer s vit 8-24 mouth. ity of no.124/iron 09:21: [place] /folic 19 Medical ( Branch VITAMIN ORAL) Yes Take by Univer s vit 8-24 mouth. ity of no.124/iron 09:21: [place] /folic 19 Medical ( Branch VITAMIN ORAL) 0 Yes Take by Univer s vit 8-24 mouth. ity of no.124/iron 09:21: [place] /folic 19 Medical ( Branch VITAMIN ORAL) Yes Take by Univer s vit 8-24 mouth. ity of no.124/iron 09:21: [place] /folic 19 Medical ( Branch VITAMIN ORAL) Yes Take by Univer s vit 8-24 mouth. ity of no.124/iron 09:21: [place] /folic 19 Medical ( Branch VITAMIN ORAL) Yes Take by Univer s vit 8-24 mouth. ity of no.124/iron 09:21: [place] /folic 19 Medical ( Branch VITAMIN ORAL) Yes Take by Univer s vit 8-24 mouth. ity of no.124/iron 09:21: [place] /folic 19 Medical ( Branch VITAMIN ORAL) Yes Take by Univer s vit 8-24 mouth. ity of no.124/iron 09:21: [place] /folic 19 Medical ( Branch VITAMIN ORAL) Yes Take by Univer s vit 8-24 mouth. ity of no.124/iron 09:21: [place] /folic 19 Medical ( Branch VITAMIN ORAL) Yes Take by Univer s vit 8-24 mouth. ity of no.124/iron 09:21: [place] /folic 19 Medical ( Branch VITAMIN ORAL) Yes Take by Univer s vit 8-24 mouth. ity of no.124/iron 09:21: [place] /folic 19 Medical ( Branch VITAMIN ORAL) Yes Take by Univer s vit 8-24 mouth. ity of no.124/iron 09:21: [place] /folic 19 Medical ( Branch VITAMIN ORAL) 0 Yes Take by Univer s vit 8-24 mouth. ity of no.124/iron 09:21: [place] /folic 19 Medical ( Branch VITAMIN ORAL) 0 Yes Take by Univer s vit 8-24 mouth. ity of no.124/iron 09:21: [place] /folic 19 Medical ( Branch VITAMIN ORAL) Yes Take by Univer s vit 8-24 mouth. ity of no.124/iron 09:21: [place] /folic 19 Medical ( Branch VITAMIN ORAL) Yes Take by Univer s vit 8-24 mouth. ity of no.124/iron 09:21: [place] /folic 19 Medical ( Branch VITAMIN ORAL) Yes Take by Univer s vit 8-24 mouth. ity of no.124/iron 09:21: [place] /folic 19 Medical ( Branch VITAMIN ORAL) Yes Take by Univer s vit 8-24 mouth. ity of no.124/iron 09:21: [place] /folic 19 Medical ( Branch VITAMIN ORAL) Yes Take by Univer s vit 8-24 mouth. ity of no.124/iron 09:21: [place] /folic 19 Medical ( Branch VITAMIN ORAL) Yes Take by Univer s vit 8-24 mouth. ity of no.124/iron 09:21: [place] /folic 19 Medical ( Branch VITAMIN ORAL) Vital Signs Vital Name Observation Time Observation Value Comments Source Systolic blood 2023-07-19 15:50:00 99 mm[Hg] Univer sity of pressure [facility] [place] [facility] Diastolic blood 2023-07-19 15:50:00 64 mm[Hg] Unive rsity of [facility] Heart rate 2023-07-19 15:50:00 96 /min [facility] Respiratory rate 2023-07-19 15:50:00 18 /[facility] 2023-07-19 15:50:00 147.3 cm [facility] Body weight 2023-07-19 15:50:00 69.854 kg [facility] BMI 2023-07-19 15:50:00 32.19 kg/m2 [facility] Systolic blood 2023-07-05 18:07:00 104 mm[Hg] Univer sity of pressure [facility] [place] [facility] Diastolic blood 2023-07-05 18:07:00 64 mm[Hg] Unive rsity of [facility] Heart rate 2023-07-05 18:07:00 91 /min [facility] [place] [facility] Body temperature 2023-07-05 18:07:00 36.89 [place] [facility] [place] [facility] Respiratory rate 2023-07-05 18:07:00 16 /min [facility] [place] [facility] Body height 2023-07-05 18:07:00 147.3 cm [facility] [place] [facility] [place] Body weight 2023-07-05 18:07:00 70.217 kg [facility] [place] [facility] BMI 2023-07-05 18:07:00 32.35 kg/m2 Universi ty of [facility] [place] [facility] Oxygen saturation in 2023-07-05 18:07:00 98 /min University Arterial blood by [facility] Pulse oximetry Branch Systolic blood 2023-06-28 18:12:00 104 mm[Hg] [facility]ity of [facility] [place] [facility] Diastolic blood 2023-06-28 18:12:00 66 mm[Hg] Unive rsity of [facility] [place] [facility] Heart rate 2023-06-28 18:12:00 92 /min [facility] [place] [facility] Body temperature 2023-06-28 18:12:00 36.72 [place] [facility] [place] [facility] Body height 2023-06-28 18:12:00 147.3 cm [facility] [place] [facility] Body weight 2023-06-28 18:12:00 69.128 kg [facility] [place] [facility] BMI 2023-06-28 18:12:00 31.85 kg/m2 [facility] [place] [facility] Systolic blood 2023-06-14 13:10:00 100 mm[Hg] Univer sity of [facility] [place] [facility] Diastolic blood 2023-06-14 13:10:00 66 mm[Hg] Unive rsity of [facility] [place] [facility] Heart rate 2023-06-14 13:10:00 68 /min [facility] [place] [facility] Body temperature 2023-06-14 13:10:00 36.5 [place] Univ ersity of [facility] Respiratory rate 2023-06-14 13:10:00 16 /min [facility] [place] [facility] [place] Body height 2023-06-14 13:10:00 147.3 cm [facility] [place] [facility] Body weight 2023-06-14 13:10:00 69.673 kg [facility] [place] [facility] BMI 2023-06-14 13:10:00 32.10 kg/m2 [facility] [place] [facility] Systolic blood 2023-06-07 18:43:00 109 mm[Hg] Univer [facility]ity of [facility] Diastolic blood 2023-06-07 18:43:00 73 mm[Hg] Unive [facility]ity of [facility] Heart rate 2023-06-07 18:43:00 79 /min [facility] [place] [facility] Body temperature 2023-06-07 18:43:00 36.83 [place] [facility] [place] [facility] Respiratory rate 2023-06-07 18:43:00 16 /min [facility] [place] [facility] Body height 2023-06-07 18:43:00 147.3 cm [facility] [place] [facility] Body weight 2023-06-07 18:43:00 68.947 kg [facility] [place] [facility] BMI 2023-06-07 18:43:00 31.77 kg/m2 [facility] [place] [facility] Respiratory rate 2023-05-30 20:39:00 16 /min [facility] [place] [facility] Body height 2023-05-30 20:39:00 147.3 cm [facility] [place] [facility] Body weight 2023-05-30 20:39:00 69.128 kg [facility] [place] [facility] BMI 2023-05-30 20:39:00 31.85 kg/m2 [facility] [place] [facility] Systolic blood 2023 14:20:00 104 mm[Hg] Univer [facility]ity [facility] Diastolic blood 2023 14:20:00 71 mm[Hg] Unive rsity of [facility] Heart rate 2023 14:20:00 92 /min [facility] [place] [facility] Respiratory rate 2023 14:20:00 18 /min [facility] Body height 2023 14:20:00 147.3 cm [facility] [place] [facility] Body weight 2023 14:20:00 68.493 kg [facility] [place] [facility] BMI 2023 14:20:00 31.56 kg/m2 [facility] Procedures Procedure Date / Time Performing Clinician Source Performed POCT URINALYSIS W/O 2023-07-19 00:00:00 [facility] 2023-07-17 18:54:00 Irene Amayae [facility] ULTRASOUND [facility] POCT URINALYSIS W/O 2023-07-05 00:00:00 Briana Whitt [facility] POCT URINALYSIS W/O 2023-06-28 00:00:00 [facility] 2023-06-19 19:22:00 Irene Amaya [facility] PATIENT QUESTIONNAIRE 2023-06-14 05:01:00 Doctor Unassigned, No [facility] POCT URINALYSIS W/O 2023-06-14 00:00:00 [facility]EN 2023-06-10 16:06:00 Irene Amaya [facility] FACTOR 2 [id number] 2023-06-10 16:06:00 [facility] F5 [facility] AND F2 [id number] 2023-06-10 16:06:00 Christina Amaya [facility] MUTATIONS [facility] URINE DRUG (IMMUNOASSAY) 2023-05-27 14:58:00 Christina Amaya [facility] COMPREHENSIVE DRUG [facility] SCREEN CBC WITH DIFF 2023-05-27 14:58:00 Irene Amaya [facility] GLYCOSYLATED HEMOGLOBIN 2023-05-27 14:58:00 Luis Amaya [facility] (A1C) [facility] RUBELLA SCREEN IGG 2023-05-27 14:58:00 Irene Amaya Uni [facility] VZV ANTIBODY SCREEN 2023-05-27 14:58:00 [facility] 2023-05-27 14:58:00 Irene Amaya Un [facility] HCV ANTIBODY 2023-05-27 14:58:00 Irene Amaya [facility] HB ABO GROUPING 2023-05-27 14:58:00 Irene Amaya [facility] URINE CULTURE 2023-05-27 14:58:00 Irene Amaya [facility] ADC OR ALAN ONLY - 2023-05-27 14:58:00 Irene Amaya [facility] HIV 1/2 AG-AB WITH 2023-05-27 14:58:00 [facility] W[facility] US 2023 15:07:28 Irene Amaya [facility] ASSIGNMENT OF BENEFITS 2023 13:50:21 Doctor Unassigned, No [facility] POCT URINALYSIS W/O 2023 00:00:00 Irnee Amaya [facility] SPECIFIC [facility] Encounters Start End Encounter Admission Attending Care Care Encounter Source Date/Time Date/Time Type Type Clinicians Facility Department ID 2023-08-01 2023-08-01 Outpatient R IRENE AMAYA [facility] [id number] [facility] 16:00:00 16:00:00 IRENE AMAYA [facility] 2023-07-19 2023-07-19 Outpatient R IRENE [facility] [id number] [facility] 10:45:00 11:14:57 MADHURI AMAYASOL [facility] 2023-07-19 2023-07-19 Routine Jeovanny-Tameka [facility] 1.2.840.114 [id number] [facility] 10:45:00 11:14:57 sIrene HANNA 350.1.13.10 ity of [place] [id number] [address] 2023-07-17 2023-07-17 Outpatient P JAN [facility] [id number] Univers 13:45:00 15:24:04 [facility] 2023-07-17 2023-07-17 Vat Skimmer Ultrasound, Caren [facility] 1.2 .840.114 [id number] Univers 13:45:00 15:24:04 Visit Lalitha Montoya HEALTH SERVICES RN 350.1.13.10 ity of REGIONAL 4.2.7.2.686 Raymond as MATERNAL [id number] [facility] ical & CHILD [address] [place] [address] 2023-07-12 2023-07-12 Outpatient R UP-MADHURI ARELLANOSOL [facility] U [facility] [id number] Univers 10:45:00 10:45:00 UP-MADHURI ARELLANOSOL [facility] 2023-07-05 2023-07-05 Outpatient R UP-MADHURI ARELLANOSOL [facility] U T[facility] [id number] Univers 13:00:00 13:11:31 UP-MADHURI ARELLANOSOL [facility] 2023-07-05 2023-07-05 Routine Up-Tameka [facility] 1.2.840.114 [id number] Univers 13:00:00 13:11:31 sIrene 350.1.13.10 ity of [place] [id number] [address] 2023-07-02 2023-07-02 Outpatient R UPMADHURI KESSLERSOL [facility] U T[facility] [id number] Univers 12:00:00 13:24:39 BEVERLYMADHURI ARELLANOSOL [facility] 2023-07-02 2023-07-02 Vat Skimmer Lab, Jay Aguilera [facility] 1.2.840.1 14 [id number] Univers 12:00:00 12:15:00 Visit UpLima Irene HEALTH 350.1.13 .10 ity of [place] 4.2.7.2.686 Raymond as JOHN?BLEA [id number] Ms mina [address] MEDICAL OFFICE BUILDING 2023-07-01 2023-07-01 [facility] 1.2.840.114 [id number] Univers 00:00:00 00:00:00 Management sIrene 350.1.13.10 it[place] [id number] [address] 2023-06-28 2023-06-28 Outpatient R UP-JOHNIE IRENE [facility] U TMB [id number] Univers 13:15:00 13:24:28 UP-JOHNIE IRENE ity [facility] 2023-06-28 2023-06-28 Routine [facility] 1.2.840.114 [id number] Univers 13:15:00 13:24:28 sLuismigue FERREIRA 350.1.13.10 ity of [place] [id number] [address] 2023-06-26 2023-06-26 Refill [facility] 1.2.840.114 [id number] Univers 00:00:00 00:00:00 sIrene 350.1.13.10 ity [place] [id number] [address] 2023-06-20 2023-06-20 Outpatient R UP-JOHNIE IRENE [facility] U [facility] [id number] Univers 11:45:00 11:45:00 UP-JOHNIE IRENE ity [facility] 2023-06-20 2023-06-20 Case [facility] 1.2.840.114 [id number] Univers 00:00:00 00:00:00 Management sIrene 350.1.13.10 ity [place] [id number] [address] 2023-06-19 2023-06-19 Vat Skimmer Ultrasound, Caren [facility] 1.2 .840.114 [id number] Univers 13:45:00 14:48:34 Visit Nancie Green HEALTH SERVICES RN 350.1.13.10 ity of [facility] 4.2.7.2.686 Raymond as MATERNAL [id number] [facility] ical & CHILD [address] [place] [address] 2023-06-19 2023-06-19 Outpatient P NANCIE GREEN [facility] [id number] Univers 13:45:00 14:48:34 NANCIE GREEN [facility] 2023-06-16 2023-06-16 Emergency EM Campos, [facility] [id number] [facility] 09:52:00 10:20:[address] Hospita 2023-06-14 2023-06-14 Outpatient R MADHURI AMAYASOL [facility] [id number] Univers 08:00:00 08:25:32 UYEN IRENE ity [facility] 2023-06-14 2023-06-14 Routine Up-Tameka [facility] 1.2.840.114 [id number] Univers 08:00:00 08:25:32 s, Irene FERREIRA 350.1.13.10 ity of [place] [id number] [address] 2023-06-14 2023-06-14 Orders Doctor TRACI 1.2.840.114 [id number] Univers 00:00:00 00:00:00 Only Unassigned, BOO 350.1.13.10 ity of [place] [facility] 4.2.7.2.686 Raymond as [id number] [address] 2023-06-10 2023-06-10 Outpatient R MADHURI AMAYASOL [facility] U [facility] [id number] Univers 11:00:00 12:39:40 IRENE AMAYA ity [facility] 2023-06-10 2023-06-10 Vat Skimmer Lab, Jay Aguilera [facility] 1.2.840.1 14 [id number] Univers 11:00:00 12:39:40 [facility] 350.1.13 .10 ity of [place] 4.2.7.2.686 Raymond as JOHN?BLEA [id number] Ms mina BAEZ [address] [place] [address] MEDICAL OFFICE BUILDING 2023-06-10 2023-06-10 Telephone [facility] 1.2.840.11 4 [id number] Univers 00:00:00 00:00:00 Dotlana HANNA 350.1.13.10 it y of [place] [id number] [address] 2023-06-07 2023-06-07 Outpatient R UEYN IRENE [facility] [id number] [facility] 13:30:00 13:59:22 MADHURI AMAYASOL ity of [facility] 2023-06-07 2023-06-07 Routine [facility] 1.2.840.114 [id number] Univers 13:30:00 13:59:22 Irene andres 350.1.13.10 ity of [place] [id number] [address] 2023-06-07 2023-06-07 Telephone [facility] 1.2.840.11 4 [id number] Univers 00:00:00 00:00:00 Irene andres 350.1.13.10 ity of [place] [id number] [address] 2023-06-06 2023-06-06 Telemedici Fellow, Woody Shaw [facility] 1 .2.840.114 [id number] Univers 14:00:00 15:00:00 ne Visit Nancie Green HEALTH SERVICES RN 350.1.13.10 ity of REGIONAL 4.2.7.2.686 [place] as MATERNAL [id number] Med ical & CHILD [address] [place] [address] 2023-06-06 2023-06-06 Outpatient R NANCIE GREEN [facility] [id number] Univers 14:00:00 14:00:00 [facility] 2023-06-06 2023-06-06 [facility] 1.2.840.114 [id number] Univers 00:00:00 00:00:00 Management sIrene 350.1.13.10 ity of [place] [id number] [address] 2023-06-06 2023-06-06 Telephone [facility] 1.2.840.11 4 [id number] Univers 00:00:00 00:00:00 s Ireneeliecer FERREIRA 350.1.13.10 ity of PEDIATRIC 4.2.7.2.686 Te [facility] CLINIC [id number] [address] 2023-06-05 2023-06-05 Telephone [facility] 1.2.840.114 [id number] Univers 00:00:00 00:00:00 s, Irene MEGAN 350.1.13.10 ity of [place] [id number] Ms dical [address] 2023-05-30 2023-05-30 Nurse Nurse, Lkj [facility] 1.2.840.114 [id number] Univers 14:30:00 15:37:54 Visit Irene Amaya 350.1.13 .10 ity of [place] [id number] [address] 2023-05-30 2023-05-30 Outpatient R IRENE AMAYA [facility] [id number] Univers 14:30:00 15:37:54 [facility] 2023-05-27 2023-05-27 Vat Skimmer Lab, Jay - Willy [facility] 1.2.840.1 14 [id number] Univers 09:45:00 10:20:42 [facility] 350.1.13 .10 ity of [place] 4.2.7.2.686 Raymond as JOHN?BLEA [id number] Ms mina [address] MEDICAL OFFICE BUILDING 2023-05-27 2023-05-27 Outpatient R UP-JOHNIE IRENE [facility] [id number] Univers 09:45:00 09:45:00 UP-ARELLANO, IRENE ity of [facility] 2023-05-27 2023-05-27 Telephone [facility] 1.2.840.11 4 [id number] Univers 00:00:00 00:00:00 sMadhuriIrene HANNA 350.1.13.10 ity of PEDIATRIC 4.2.7.2.686 Te s [facility] [id number] [address] 2023 2023 Outpatient R UP-JOHNIE IRENE [facility] [id number] Univers 09:00:00 09:58:37 UP-ARELLANO, IRENE ity of [facility] 2023 2023 Initial [facility] 1.2.840.114 [id number] Univers 09:00:00 09:58:37 sLuisl HANNA 350.1.13.10 ity of Visit [place] [id number] [address] 2023 2023 Orders Doctor TRACI 1.2.840.114 [id number] Univers 00:00:00 00:00:00 Only Unassigned, BOO 350.1.13.10 ity of [place] [facility] 4.2.7.2.686 Raymond as [id number] [address] 2023 2023 Telephone [facility] 1.2.840.11 4 [id number] Univers 00:00:00 00:00:00 s Irene HANNA 350.1.13.10 ity of WOMEN'S 4.2.7.2.686 [facility] [id number] [address] 2023 2023 Telephone Stephanie [facility] 1.2.840.11 4 [id number] Univers 00:00:00 00:00:00 Irene andres 350.1.13.10 ity of WOMEN'S 4.2.7.2.686 [facility] [id number] [place] [address] [place] 2022-03-23 2022-03-24 Emergency EM Peace, [facility] ER [id number] [facility] Balaji 22:53:00 02:36:00 May [facility] 2022-03-23 2022-03-23 Emergency EM Peace, HCARG HC[facility] [id number] [facility] Ernest 22:53:00 22:53:00 May [id number] [facility] Results Test Description Test Time Test Comments Results Result Comments Source POCT URINALYSIS W/O SPECIFIC GRAVITY 2023-07-19 15:52:00 Test Item Value Reference Range Interpretation Comme nts POCT PH U (test code = 3254) N/A 5-8 POCT U LEUK EST (test code = 3263) N/A Negative - Negative POCT U NIT (test code = 3262) N/A Negative - Negative POCT U PROT (test code = 3259) Negative Negative - Negative POCT U GLU (test code = 3256) Negative Negative - Negative POCT U KETONE (test code = 3258) N/A Negative - Negative POCT U BLD (test code = 3257) N/A Negative - Negative [facility] SPEC[facility] [id number] 15:52:00 Test Item Value Reference Range Interpretation Comments POCT PH U (test code = 3254) N/A 5-8 POCT U LEUK EST (test code = N/A Negative - Negative 3263) POCT U NIT (test code = 3262) N/A Negative - Negative POCT U PROT (test code = 3259) Negative Negative - Negative POCT U GLU (test code = 3256) Negative Negative - Negative POCT U KETONE (test code = 3258) N/A Negative - Negative POCT U BLD (test code = 3257) N/A Negative - Negative [facility]/O SPECIFIC [id number] 18:01:00 Test Item Value Reference Range Interpretation Comments POCT PH U (test code = 3254) n/a 5-8 POCT U LEUK EST (test code = n/a Negative - Negative 3263) POCT U NIT (test code = 3262) n/a Negative - Negative POCT U PROT (test code = 3259) negative Negative - Negative POCT U GLU (test code = 3256) 100 Negative - Negative POCT U KETONE (test code = 3258) n/a Negative - Negative POCT U BLD (test code = 3257) n/a Negative - Negative [facility] W/O SPECIFIC [id number] 18:10:00 Test Item Value Reference Range Interpretation Comments POCT PH U (test code = 3254) n/a 5-8 POCT U LEUK EST (test code = n/a Negative - Negative 3263) POCT U NIT (test code = 3262) n/a Negative - Negative POCT U PROT (test code = 3259) Negative Negative - Negative POCT U GLU (test code = 3256) Normal Negative - Negative POCT U KETONE (test code = 3258) n/a Negative - Negative POCT U BLD (test code = 3257) n/a Negative - Negative [facility] BranchURINALYSIS [id number] 10:10:00 Test Item Value Reference Range Interpretation Comments POC,URINE COLOR (test Yellow Yellow Testin g performed code = EDCOLU) at:[facility] [address] [place] [address] [place] [address] ----- ----- -- POC,URINE CLARITY (test Cloudy Clear A code = EDCLARITY) POC,URINE GLUCOSE (test 100 Negative A code = EDGLUU) POC,URINE BILIRUBIN Negative Negative (test code = EDBILIU) POC,URINE KETONES (test Trace Negative A code = EDKETU) POC,URINE SPECIFIC >= 1.030 1.001-1.035 N GRAVITY (test code = EDSGU) POC,URINE BLOOD (test Large Negative A code = EDBLDU) POC,URINE pH (test code 6.0 5.0-8.0 N = EDPH) POC,URINE PROTEIN (test >=300 Negative A code = EDPROTU) POC,URINE UROBILINOGEN 1.0 E.U/dL 0.2-1.0 (test code = EDURO) POC,URINE NITRITE (test Negative Negative code = EDNIT) POC,URINE LEUKOCYTE Small Negative A ESTERASE (test code = EDLEUK) POCT URINALYSIS W/O SPECIFIC [id number] 13:10:00 Test Item Value Reference Range Interpretation Comments POCT PH U (test code = 3254) n/a 5-8 POCT U LEUK EST (test code = n/a Negative - Negative 3263) POCT U NIT (test code = 3262) n/a Negative - Negative POCT U PROT (test code = 3259) negative Negative - Negative POCT U GLU (test code = 3256) negative Negative - Negative POCT U KETONE (test code = 3258) n/a Negative - Negative POCT U BLD (test code = 3257) n/a Negative - Negative [facility] [id number] 14:33:02 Test Item Value Reference Range Interpretation Comments Factor 2 [id number] Normal Normal Mutation (test code = 8081514746) LIDYA (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 Incidence: Approximately 2-5 percent of Caucasians and 0.3 percent of Americans are heterozygous; about 1 in 10,000 individuals are homozygous with two copies of the mutation.Inheritance: Autosomal dominant. Penetrance: The risk of thrombosis is increased 2-4 fold for heterozygotes and further increased for homozygotes. Mutation Tested: F2 c.55622R>A (O55264G). Clinical Sensitivity for Venous Thrombosis: Approximately 10%. Methodology: Polymerase chain reaction and fluorescence monitoring Limitations: The performance of this assay has not been evaluated with samples from pediatric patients. Counseling and informed consent are recommended for genetic testing. 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 Incidence: Between 3 and 8 percent of people with ancestry are heterozygous and about 1 in 5000 individuals are homozygous with two copies of the mutation. The mutation is less common in other population.Inheritance: Autosomal dominant. Penetrance: Lifetime risk of thrombosis is 10 percent for heterozygotes and 80 percent for homozygotes. Mutation Tested: Missense F5 gene mutation R506Q (1691G>A). Note: Standardized nomenclature for the Factor 5 Leiden mutation is c.1601G>A (p.Rhz675Hzo). Methodology: Polymerase chain reaction and fluorescence monitoring. Limitations: Rare Factor V mutations (Q5388H, J9511B, and W8969X) and any additional SNPs in the probe binding region may interfere with the target detection and yield an INVALID result. The performance of this assay has not been evaluated with samples from pediatric patients. Counseling and informed consent are recommended for genetic testing. References: OMIM: 503401 https://ghr.nlm.nih.gov/co ndition/zshzhb-h-orqgnq-th rombophilia [facility] W/O SPECIFIC [id number] 14:25:00 Test Item Value Reference Range Interpretation Comments POCT PH U (test code = 3254) N/A 5-8 POCT U LEUK EST (test code = N/A Negative - Negative 3263) POCT U NIT (test code = 3262) N/A Negative - Negative POCT U PROT (test code = 3259) Negative Negative - Negative POCT U GLU (test code = 3256) 3+ Negative - Negative POCT U KETONE (test code = 3258) N/A Negative - Negative POCT U BLD (test code = 3257) N/A Negative - Negative [facility]- [facility] PREG 1ST [id number] 09:50:00 [facility] : 1995 Sex: F FAX: May Smith Hollins: ALDAIR St: DEP Name: FCO BROCK [facility] : 1995 Age/S: 26/F[address] [facility] Unit #: [id number] Loc: [place] [address] Phys: May Smith MD Acct: [id number] Dis Date: Status: DEP ER PHONE #: [phone] Exam Date: 03/23/202244 FAX #: [phone] Reason: pelvic pain EXAMS: CPT CODE: [id number] US PREG 1ST TRIMTR 48596 - US PREG UT TRANSVAGINAL , 03/24/2022 12:45 AM. INDICATION: /VAGINAL BLEED . TECHNIQUE: The gravid uterus was evaluated utilizing dynamic scanning. A transabdominal and transvaginal study was performed. FINDINGS: There is a single intrauterine gestation. Measurements of the crown-rump length of 0.43 cm indicate a age of 6 weeks 1 day. The JOSE is 11/17/2022. By LMP, fetus is 11 weeks 1 day. No dopplerable heart tones. A yolk sac was demonstrated. No subchorionic hemorrhage or other abnormality was seen. The uterus measures 10.5 x 5.8 x 7.2 cm. Both ovaries were identified and normal in size and echogenicity. The right ovary measures 3.3 x 2.1 x 2.2 cm. The left ovary measures 3.2 x 1.5 x 3.1 cm. No suspicious adnexal masses or fluid collections were seen. CONCLUSION: 1. Single intrauterine gestation at approximately 6 weeks 1 day, discordant with LMP dates. No dopplerable heart tonesmay be secondary to very early gestation however short-term follow-up and correlation with serial beta hCG suggested. 2. No suspicious adnexal masses. at 0950 Reported and signed by: ANNIE MUNSON M.D. CC: Technologist: Martina Leach RDMS Trnscrd Date/Time/By: 04/24/2022 (0950) : By: [email or web address] Orig Print D/T: S: 04/24/2022 (0953) PAGE 1 Signed Report- US PREG UT [id number] 01:08[facility] 1995 Sex: F FAX: May Smith Hollins: ALDA[address] St: REG Name: FCO BROCK [facility] : 1995 Age/S: 26/F [address] [facility] Unit #: [id number] Loc: [place] [address] Phys: May Smith MD Acct: [id number] Dis Date: Status: REG ER PHONE #: [phone] Exam Date: 03/24/202244 FAX #: [phone] Reason: VAGINAL BLEED EXAMS: CPT CODE: [id number] US PREG UT TRANSVAGINAL 52216 - US PREG UT TRANSVAGINAL , 03/24/2022 12:45 AM. INDICATION: /VAGINAL BLEED . TECHNIQUE: The gravid uterus was evaluated utilizing dynamic scanning. A transabdominal and transvaginal study was performed. FINDINGS: There is a single intrauterine gestation. Measurements of the crown- rump length of 0.43 cm indicate a age of 6 weeks 1 day. The JOSE is 11/17/2022. By LMP, fetus is 11 weeks 1 day. Nodopplerable heart tones. A yolk sac was demonstrated. No subchorionic hemorrhage or other abnormality was seen. The uterus measures 10.5 x 5.8 x 7.2 cm. Both ovaries were identified and normal insize and echogenicity. The right ovary measures 3.3 x 2.1 x 2.2 cm. The left ovary measures 3.2 x 1.5 x 3.1 cm. No suspicious adnexal masses or fluid collections were seen. CONCLUSION: 1. Single intrauterine gestation at approximately 6 weeks 1 day, discordant with LMP dates. No dopplerable heart tones may be secondary to very early gestation however short-term follow- up and correlation with serial beta hCG suggested. 2. No suspicious adnexal masses. at 0108 Reported and signed by: ANNIE MUNSON M.D. CC: Technologist: [id number] PROBE USED Trnscrd Date/Time/By: 03/24/2022 (0108) : By: [email or web address] Orig Print D/T: S: 03/24/2022 (0111) PAGE 1 Signed ReportBASIC METABOLIC [id number] 00:01:00 Test Item Value Reference Range Interpretation Comments SODIUM (test code = 133 mmol/L 136-145 L NA) POTASSIUM (test code 4.0 mmol/L 3.5-5.1 N = K) CHLORIDE (test code = 103 mmol/L 98-107 N CL) CARBON DIOXIDE (test 27 mmol/L 21-32 N code = CO2) GLUCOSE (test code = 431 mg/dL 70-100 H GLU) BLOOD UREA NITROGEN 9 mg/dL 7-18 N (test code = BUN) GLOMERULAR FILTRATION > 60.00 See_Comment Report ing units: RATE (test code = mL/min/1.7 3m\S\2 GFR) (Modified MDRD formula)REFEREN CE RANGE: > or = 6 0 ml/min/1.73M2IF PATIENT IS -KLEBER N, MULTIPLY REPORT ED RESULT BY10.20. [Automated mess age] The system [employer] generated this result transmitted ref erence range: >=60. Th e reference range was not used to int erpret this result as normal/abnormal . CREATININE (test code 0.77 mg/dL 0.51-0.95 N = CREAT) CALCIUM (test code = 9.5 mg/dL 8.5-10.1 N CA) HCG [id number] 00:01:00 Test Item Value Reference Range Interpretation Comments HCG SERUM (test 5119 mIU/ml 0-6 H Values for B -hCG generally code = HCG) peak during the first trimesterand de middleton slowly throughout the remainder of thepregnancy. A sharply reduced or fall ing serum B-hCG levelmay indicate an abnormal pregna ncy, and additonal clinicalevaluat ion and follow-up may b e appropriate. HC G rangesduring no rmal , as r eported in the literature, aresummarized below.......... ............ ............... ............ ............Pilo roximate hCG Approximate GestationalRang e mIU/mL[IU/L] Age ---- ------5 - 50 0.2 - 1 Week50 - 500 1 - 2 Vtsua597 - 5000 2 - 3 Mrjgq766 - 10,0 00 3 - 4 Qxrkw7468 - 50, 000 4 - 5 Weeks10,000 - 1 00,000 5 - 6 Weeks15,000 - 2 00,000 6 - 8 Weeks10,000 - 1 00,000 2 - 3 Months CBC W/AUTO [id number] 23:25:00 Test Item Value Reference Range Interpretation Comments WHITE BLOOD CELL (test code = 8.8 X10(3) 4.5-11.0 N WBC) RED BLOOD CELL (test code = 4.84 X10(6) 4.2-5.4 N RBC) HEMOGLOBIN (test code = HGB) 13.0 g/dL 12.5-16.0 N HEMATOCRIT (test code = HCT) 39.9 % 37.0-47.0 N MEAN CELL VOLUME (test code = 82.4 fl 78-100 N MCV) MEAN CELL HGB (test code = MCH) 26.9 pg 26.0-34.0 N MEAN CELL HGB CONCETRATION 32.6 g/dl 30.0-37.0 N (test code = MCHC) RED CELL DISTRIBUTION WIDTH 13.7 % 11.5-14.5 N (test code = RDW) PLATELET COUNT (test code = 229 X10(3) 150-350 N PLT) MEAN PLATELET VOLUME (test code 12.3 fl 8.7-11.4 H = MPV) NEUTROPHIL % (test code = NT%) 59.9 % 36.0-66.0 N IMMATURE GRANULOCYTE % (test 0.3 % 0.0-2.0 N code = IG%) LYMPHOCYTE % (test code = LY%) 33.4 % 16.0-50.0 N MONOCYTE % (test code = MO%) 4.9 % 0.0-13.0 N EOSINOPHIL % (test code = EO%) 1.2 % 0.0-4.5 N BASOPHIL % (test code = BA%) 0.3 % 0.0-1.5 N NUCLEATED RBC % (test code = 0.0 % 0-0.2 N NRBC%) NEUTROPHIL # (test code = NT#) 5.29 X10(3) 1.70-7.70 N IMMATURE GRANULOCYTE # (test 0.03 X10(3)uL 0.00-0.03 N code = IG#) LYMPHOCYTE # (test code = LY#) 2.95 X10(3) 0.70-4.00 N MONOCYTE # (test code = MO#) 0.43 X10(3) 0.00-0.89 N EOSINOPHIL # (test code = EO#) 0.11 X10(3) 0.00-0.60 N BASOPHIL # (test code = BA#) 0.03 X10(3) 0.00-0.20 N NUCLEATED RBC # (test code = 0.00 K/mm3 0.0-0.1 N NRBC#)
[2023-07-29] MEDS ORDERED: METOCLOPRAMIDE 10 MG/2mL INJ ONE (00:26)
[2023-07-29] MEDS ORDERED: NA CHLORIDE 0.9% 1,000 ML ONE (00:26)
[2023-07-29] MEDS ORDERED: ACETAMINOPHEN 500 MG TAB ONE (00:26)
[2023-07-29 00:36] LABS: Absolute Lymphocytes (CBC) 2.3 K/uL (0.7-4.9); Hematocrit 34.2 % (36.0-45.0); Lymphocytes % 18.9 % (15.3-44.8); MCV 84.1 fL (80-100); MPV 10.6 fL (7.6-11.3); Platelets 196 thou/uL (152-406); RBC Red Blood Cell Count 4.07 M/uL (3.86-4.86)
[2023-07-29 00:45] LABS: Specific Gravity > 1.030 (1.005-1.030); Urine Bacteria >50 /HPF (<20); Urine Bilirubin NEGATIVE (Negative); Urine Blood Negative (Negative); Urine Clarity Extremely Turbid (Clear); Urine Color Yellow (Yellow); Urine Glucose 4+ (Over) (Negative); Urine Protein 1+ (Negative); Urine RBC <5 /HPF (None Seen); Urine Urobilinogen Normal (Normal); Urine pH 6.5 (5.0-7.0)
[2023-07-29 00:47] LABS: Albumin 2.7 g/dL (3.4-5.0); Bilirubin Total 0.2 mg/dL (0.2-1.0); Potassium 3.4 mEq/L (3.5-5.1); Protein, Total 7.2 g/dL (6.4-8.2)
[2023-07-29] MEDS ORDERED: NA CHLORIDE 0.9% 50 ML ONE (02:01)
[2023-07-29] MEDS ORDERED: CEFTRIAXONE 1000 MG/VIAL ONE (02:01)
--- NOTE | 2023-07-29 02:27 | ER ---
Nurse's Notes [facility] Name: Nnamdi Rascon Age: 28 yrs Sex: Female : 1995 Arrival Date: 07/28/2023 Time: 22:49 Bed 4 Private MD: Diagnosis: UTI/ Urinary tract infection, site not specified;Pyelonephritis acute;UTI in Presentation: 07/28 23:27 Chief complaint: Patient states: right abdominal pain into right hip since this lg3 morning. denies N/V. Coronavirus screen: Client denies travel out of the [place] in the last 14 days. At this time, the client does not indicate any symptoms associated with coronavirus-19. Ebola Screen: No symptoms or risks identified at this time. Initial Sepsis Screen: Does the patient meet any 2 criteria? No. Patient's initial sepsis screen is negative. Does the patient have a suspected source of infection? No. Patient's initial sepsis screen is negative. Risk Assessment: Do you want to hurt yourself or someone else? Patient reports no desire to harm self or others. Onset of symptoms was July 28, 2023. 23:27 Method Of Arrival: Ambulatory lg3 23:27 Acuity: GÉNESIS 3 lg3 Triage Assessment: 23:29 General: Appears in no apparent distress. uncomfortable, Behavior is calm, cooperative. lg3 Pain: Complains of pain in right upper quadrant and right lower quadrant Pain radiates to right hip. EENT: No deficits noted. No signs and/or symptoms were reported regarding the EENT system. Neuro: No deficits noted. Nagel Agitation-Sedation Scale (RASS): 0 - Alert and Calm Level of Consciousness is awake, alert, obeys commands, Oriented to person, place, time, situation. Cardiovascular: No deficits noted. Denies chest pain, shortness of breath, Capillary refill < 3 seconds Clubbing of nail beds is absent JVD is absent Patient's skin is warm and dry. Respiratory: No deficits noted. Airway is patent Respiratory effort is even, unlabored, Respiratory pattern is regular, symmetrical. GI: Abdomen is round non-distended, Reports lower abdominal pain, upper abdominal pain, cramping. : No deficits noted. No signs and/or symptoms were reported regarding the genitourinary system. Derm: No deficits noted. No signs and/or symptoms reported regarding the dermatologic system. Skin is intact, is healthy with good turgor, Skin is dry, Skin is normal, Skin temperature is warm. Musculoskeletal: No deficits noted. No signs and/or symptoms reported regarding the musculoskeletal system. Circulation, motion, and sensation intact. Range of motion: intact in all extremities. 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 - Social history:: Smoking status: Patient denies any tobacco usage or history of. Patient/guardian denies using alcohol, street drugs. - Family history:: not pertinent. Screenin:55 [facility] ED Fall Risk Assessment (Adult) History of falling in the last 3 months, km8 including since admission No falls in past 3 months (0 pts) Confusion or Disorientation No (0 pts) Intoxicated or Sedated No (0 pts) Impaired Gait No (0 pts) Mobility Assist Device Used No (0 pt) Altered Elimination No (0 pt) Score/Fall Risk Level 0 - 2 = Low Risk Oriented to surroundings, Maintained a safe environment, Educated pt \T\ family on fall prevention, incl call for assistance when getting out of bed, Assessed \T\ reinforced patient's understanding of fall precautions. Abuse screen: Denies threats or abuse. Denies injuries from another. Nutritional screening: No deficits noted. Tuberculosis screening: No symptoms or risk factors identified. Assessment: 23:55 General: Appears in no apparent distress. uncomfortable, Behavior is calm, cooperative, km8 appropriate for age. 23:55 Pain: Complains of pain in anterior aspect of right lateral abdomen Pain currently is 6 km8 out of 10 on a pain scale. Neuro: Nagel Agitation-Sedation Scale (RASS): 0 - Alert and Calm Level of Consciousness is awake, alert, obeys commands, Oriented to person, place, time, situation. Cardiovascular: Denies chest pain, shortness of breath, Capillary refill < 3 seconds Patient's skin is warm and dry. Respiratory: Airway is patent Respiratory effort is even, unlabored, Respiratory pattern is regular, symmetrical. GI: Abdomen is Reports right sided pain. : No signs and/or symptoms were reported regarding the genitourinary system. EENT: No deficits noted. No signs and/or symptoms were reported regarding the EENT system. Derm: No signs and/or symptoms reported regarding the dermatologic system. Skin is intact, is healthy with good turgor, Skin is dry, Skin is normal, Skin temperature is warm. Musculoskeletal: No signs and/or symptoms reported regarding the musculoskeletal system. Range of motion: intact in all extremities. 07/29 01:32 Reassessment: Patient appears in no apparent distress at this time. Patient is alert, km8 oriented x 3, equal unlabored respirations, skin warm/dry/pink. 02:31 Reassessment: Patient appears in no apparent distress at this time. No changes from km8 previously documented assessment. Patient and/or family updated on plan of care and expected duration. Pain level reassessed. Patient is alert, oriented x 3, equal unlabored respirations, skin warm/dry/pink. Vital Signs: 07/28 23:27 BP 120 / 76; Pulse 85; Resp 17 S; Temp 98.4(O); Weight 69.4 kg (R); Height 4 ft. 10 in. lg3 (R); 23:55 BP 112 / 62; Pulse 88; Resp 18 S; Pulse Ox 99% on R/A; km8 07/29 00:30 BP 111 / 66; Pulse 90; Resp 18 S; Pulse Ox 99% on R/A; km8 01:00 BP 103 / 62; Pulse 93; Resp 16 S; Pulse Ox 99% on R/A; km8 02:00 BP 99 / 63; Pulse 86; Resp 16; Pulse Ox 98% on R/A; km8 07/28 23:27 Body Mass Index 31.98 (69.40 kg, 147.32 cm) lg3 ED Course: 07/28 22:55 Patient arrived in ED. mr 23:21 Jace Corley MD is Attending Physician. sp4 23:29 Triage completed. lg3 23:29 Arm band placed on right wrist. lg3 23:38 Kanchan Maxwell, ACOSTA is Primary Nurse. km8 23:55 Patient has correct armband on for positive identification. Placed in gown. Bed in low km8 position. Call light in reach. Side rails up X 1. Client placed on continuous cardiac and pulse oximetry monitoring. NIBP monitoring applied. Door closed. Noise minimized. 23:55 Inserted saline lock: 20 gauge in right antecubital area, using aseptic technique. km8 Blood collected. 23:55 Patient maintains SpO2 saturation greater than 95% on room air. km8 23:58 CBC with Diff Sent. km8 23:58 CMP Sent. km8 23:58 Lipase Sent. km8 23:58 Urinalysis w/ reflexes Sent. km8 07/29 00:16 US OB Limited In Process Unspecified. EDMS 00:16 US Abdomen Limited In Process Unspecified. EDMS 02:31 Provided Education on: d/c teaching. km8 02:31 No provider procedures requiring assistance completed. km8 02:31 IV discontinued, intact, bleeding controlled, No redness/swelling at site. Pressure km8 dressing applied. Administered Medications: 00:20 Drug: NS 0.9% IV 1000 ml IV at 1 bolus Per protocol; 1000 mL bolus Route: IV; Rate: 1 km8 bolus; Site: right antecubital; 01:30 Follow up: IV Status: Completed infusion; IV Intake: 1000ml km8 00:20 Drug: metoCLOPramide IVP 10 mg IVP once; over 1 to 2 minutes Route: IVP; Site: right 8 antecubital; 01:51 Follow up: Response: No adverse reaction km8 00:20 Drug: Acetaminophen PO 1000 mg PO once Route: PO; km8 01:51 Follow up: Response: No adverse reaction km8 01:51 Drug: Rocephin - Rocephin (cefTRIAXone) IVPB 1 grams IVPB once over 30 mins; (mix in 50 km8 mL NS) Route: IVPB; Infused Over: 30 mins; Site: right antecubital; 02:30 Follow up: Response: No adverse reaction; IV Status: Completed infusion; IV Intake: [id number] Medication: 02:31 VIS not applicable for this client. km8 Intake: 01:30 IV: 1000ml; Total: 1000ml. km8 02:30 IV: 50ml; Total: 1050ml. km8 Outcome: 02:26 Discharge ordered by . sp4 02:35 Discharged to home ambulatory, with significant other, km8 02:35 Condition: good 02:35 Discharge instructions given to patient, significant other, Instructed on discharge instructions, follow up and referral plans. medication usage, Demonstrated understanding of instructions, follow-up care, medications, Prescriptions given X 2, 02:36 Patient left the ED. km8 Signatures: Dispatcher [employer] EDKS Danelle Rojo, Reg Reg Iza Cohn, RN RN lg3 Jace Corley MD MD sp4 Kanchan Maxwell RN RN km8 Corrections: (The following items were deleted from the chart) 07/28 23:31 23:29 PMHx: Pulmonary emphysema; lg3 lg3
--- NOTE | 2023-07-29 02:27 | EDPHYS ---
Physician Documentation [facility] Name: Nnamdi Rascon Age: 28 yrs Sex: Female : 1995 Arrival Date: 07/28/2023 Time: 22:49 Bed 4 Private MD: ED Physician Jace Corley HPI: 07/28 23:21 This 28 yrs old Female presents to ER via Unassigned with complaints of 23 wks sp4 , Flank Pain. 07/29 02:20 Patient he is a -0-3-3 female at 23 weeks 3 days EGA presents with a right flank sp4 pain right-sided abdominal pain without vaginal bleeding. 02:21 Patient states pain started this morning she denies nausea vomiting diarrhea. Patient sp4 denies fever or urinary symptoms. Patient has associated diabetes , she takes insulin, and she takes daily Lovenox 40 mg for DVT PE prevention. . 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 - Social history:: Smoking status: Patient denies any tobacco usage or history of. Patient/guardian denies using alcohol, street drugs. - Family history:: not pertinent. ROS: 07/29 02:21 Constitutional: Negative for fever, chills, and weight loss, positive for right flank sp4 pain All other systems are negative, Exam: 02:21 Constitutional: This is a well developed, well nourished patient who is awake, alert, sp4 and in no acute distress. Head/Face: Normocephalic, atraumatic. Eyes: Pupils equal round and reactive to light, extra-ocular motions intact. Lids and lashes normal. Conjunctiva and sclera are not injected. Cornea within normal limits. Periorbital areas with no swelling, redness, or edema. ENT: Nares patent. No nasal discharge, no septal abnormalities noted. Tympanic membranes are normal and external auditory canals are clear. Oropharynx with no redness, swelling, or masses, exudates, or evidence of obstruction, uvula midline. Mucous membranes moist. Neck: Trachea midline, no thyromegaly or masses palpated, and no cervical lymphadenopathy. Supple, full range of motion without nuchal rigidity, or vertebral point tenderness. Chest/axilla: Normal chest wall appearance and motion. Nontender with no deformity. No lesions are appreciated. Cardiovascular: Regular rate and rhythm with a normal S1 and S2. No gallops, murmurs, or rubs. Normal PMI, no JVD. No pulse deficits. Respiratory: Lungs have equal breath sounds bilaterally, clear to auscultation and percussion. No rales, rhonchi or wheezes noted. No increased work of breathing, no retractions or nasal flaring. Abdomen/GI: Soft, non-tender, with normal bowel sounds. No distension or tympany. No guarding or rebound. No evidence of tenderness throughout. Back: No spinal tenderness. Positive right CVA tenderness. Skin: Warm, dry with normal turgor. Normal color with no rashes, no lesions, and no evidence of cellulitis. MS/ Extremity: Pulses equal, no cyanosis. Neurovascular intact. Full, normal range of motion. Neuro: Awake and alert, GCS 15, oriented to person, place, time, and situation. Cranial nerves II-XII grossly intact. Motor strength 5/5 in all extremities. Sensory grossly intact. Psych: Awake, alert, with orientation to person, place and time. Behavior, mood, and affect are within normal limits Vital Signs: 07/28 23:27 BP 120 / 76; Pulse 85; Resp 17 S; Temp 98.4(O); Weight 69.4 kg (R); Height 4 ft. 10 in. lg3 (R); 23:55 BP 112 / 62; Pulse 88; Resp 18 S; Pulse Ox 99% on R/A; km8 07/29 00:30 BP 111 / 66; Pulse 90; Resp 18 S; Pulse Ox 99% on R/A; km8 01:00 BP 103 / 62; Pulse 93; Resp 16 S; Pulse Ox 99% on R/A; 8 02:00 BP 99 / 63; Pulse 86; Resp 16; Pulse Ox 98% on R/A; km8 07/28 23:27 Body Mass Index 31.98 (69.40 kg, 147.32 cm) lg3 MDM: 07/28 23:23 Patient medically screened. sp4 07/29 02:14 ED course: RUQ sonogram - FINDINGS: Very limited study demonstrate a gallbladder sp4 demonstrated no cholelithiasis. No pericholecystic fluid. The CBD measures 3.7 mm. Overlying gas limits evaluation. IMPRESSION: Very limited study, unremarkable gallbladder. . ED course: Pelvic sonogram - TECHNIQUE: Transabdominal obstetrical ultrasound was performed. FINDINGS: Number of fetuses: Single position: Breech AC: 19.1 cm FL: 4.2 cm HR: 138 BPM Placenta: Posterior Estimated gestational age by ultrasound is 23 weeks and 5 days, with JOSE of 11/19/2023 IMPRESSION: 1. Single viable IUP. 2. Breech presentation. . 02:21 Differential diagnosis: nephrolithiasis, pyelonephritis, UTI, diverticulitis, sp4 pancreatitis. Data reviewed: vital signs, nurses notes, old medical records, lab test result(s), radiologic studies, ultrasound. Consideration of Admission/Observation Escalation of care including admission/observation considered. ED course: Patient has signs of early right pyelonephritis with right costovertebral angle tenderness to percussion, signs of UTI on urinalysis, and mild elevation of WBC.. 07/28 23:22 Order name: CBC with Diff; Complete Time: sp4 07/28 23:22 Order name: CMP; Complete Time: sp4 07/28 23:22 Order name: Lipase; Complete Time: sp4 07/28 23:22 Order name: Urinalysis w/ reflexes; Complete Time: sp4 07/29 01:09 Order name: Urine Culture EDUT 07/28 23:23 Order name: US OB Limited sp4 07/28 23:30 Order name: US Abdomen Limited sp4 07/28 23:22 Order name: IV Saline Lock; Complete Time: 23:58 sp4 07/28 23:22 Order name: Labs collected and sent; Complete Time: 23:58 sp4 Administered Medications: 00:20 Drug: NS 0.9% IV 1000 ml IV at 1 bolus Per protocol; 1000 mL bolus Route: IV; Rate: 1 km8 bolus; Site: right antecubital; 01:30 Follow up: IV Status: Completed infusion; IV Intake: 1000ml 00:20 Drug: metoCLOPramide IVP 10 mg IVP once; over 1 to 2 minutes Route: IVP; Site: right 8 antecubital; 01:51 Follow up: Response: No adverse reaction 00:20 Drug: Acetaminophen PO 1000 mg PO once Route: PO; 01:51 Follow up: Response: No adverse reaction 01:51 Drug: Rocephin - Rocephin (cefTRIAXone) IVPB 1 grams IVPB once over 30 mins; (mix in 50 km8 mL NS) Route: IVPB; Infused Over: 30 mins; Site: right antecubital; 02:30 Follow up: Response: No adverse reaction; IV Status: Completed infusion; IV Intake: [id number] Disposition Summary: 07/29/23 02:26 Discharge Ordered Notes: Location: Home sp4 Problem: new sp4 Symptoms: have improved sp4 Condition: Stable sp4 Diagnosis - UTI/ Urinary tract infection, site not specified sp4 - Pyelonephritis acute sp4 - UTI in sp4 Followup: sp4 - With: Private Physician - When: 1 - 2 days - Reason: Recheck today's complaints Discharge Instructions: - Discharge Summary Sheet sp4 - and Urinary Tract Infection sp4 Forms: - Antibiotic Education sp4 - Patient Portal Instructions sp4 Prescriptions: - ondansetron 4 mg Oral Tablet,disintegrating - take 1 tablet ORAL route every 6 hours for 4 days PRN nausea; 30 tablet; sp4 Refills: 0, Product Selection Permitted - Cephalexin 500 mg Oral Capsule - take 1 capsule ORAL route every 6 hours for 10 days; 40 capsule; Refills: 0, sp4 Product Selection Permitted Signatures: Dispatcher [employer] Iza Oreilly, RN RN lg3 Jace Corley MD MD sp4 Kanchan Maxwell RN RN km8 Corrections: (The following items were deleted from the chart) 07/28 23:31 23:29 PMHx: Pulmonary emphysema; lg3 lg3
[2023-07-29 03:23] VITALS: TEMP 98.4
[2023-07-29 03:27] VITALS: BP 99/63; O2SAT 98
--- NOTE | 2023-07-29 17:53 | RAD REPORT ---
EXAM DESCRIPTION: US - OB Limited - 07/29/2023 12:14 am CLINICAL HISTORY: 28 years Female ABD PAIN COMPARISON: None TECHNIQUE: Transabdominal obstetrical ultrasound was performed. FINDINGS: Number of fetuses: Single position: Breech AC: 19.1 cm FL: 4.2 cm HR: 138 BPM Placenta: Posterior Estimated gestational age by ultrasound is 23 weeks and 5 days, with JOSE of 11/19/2023 IMPRESSION: 1. Single viable IUP. 2. Breech presentation. Electronically signed by: Cheryl Blandon MD 07/29/2023 12:28 AM CDT Due to temporary technical issues with the PACS/Fluency reporting system, reports are being signed by the in house radiologists without review as a courtesy to insure prompt reporting. The interpreting radiologist is fully responsible for the content of the report.
--- NOTE | 2023-07-29 17:56 | RAD REPORT ---
EXAM DESCRIPTION: US - Abdomen Exam Limited - 07/29/2023 12:14 am CLINICAL HISTORY: 28 years, Female, Right upper abdominal pain COMPARISON: None. TECHNIQUE: Utilizing a curved array transducer, real-time ultrasound evaluation of the gallbladder. FINDINGS: Very limited study demonstrate a gallbladder demonstrated no cholelithiasis. No pericholec ystic fluid. The CBD measures 3.7 mm. Overlying gas limits evaluation. IMPRESSION: Very limited study, unremarkable gallbladder. Electronically signed by: Juanito Matamoros MD 07/29/2023 12:29 AM CDT Due to temporary technical issues with the PACS/Fluency reporting system, reports are being signed by the in house radiologists without review as a courtesy to insure prompt reporting. The interpreting radiologist is fully responsible for the content of the report.
== END 2023-07-29 02:36 | disposition home or self-care (01) ==
LOC: ER 22:49
DX: O23.42 Unspecified infection of urinary tract in pregnancy, second trimester (principal); O23.02 Infections of kidney in pregnancy, second trimester; O24.414 Gestational diabetes mellitus in pregnancy, insulin controlled; Z3A.23 23 weeks gestation of pregnancy; Z86.711 Personal history of pulmonary embolism; Z79.01 Long term (current) use of anticoagulants
CPT/HCPCS: 96365; 96361; 87088; 85025; 81001; 87086; 36415; 87077; 87186; 83690; 80053; 76705; 76815; 96375; 99285; J2765; J7030; J0696